=== PATIENT | female | born 1990 | race Caucasian/White ===

== ENCOUNTER 2018-06-05 13:04 | Emergency (ER) | payer OTHER ==
--- NOTE | 2018-06-05 13:47 | ERPHSYRPT ---
- History of Present Illness Time Seen by Provider: 06/05/18 13:43 Historian: patient, family Exam Limitations: no limitations Patient Subjective Stated Complaint: pt here for lower abd cramping since last night. no n/v, states she had conflicting test yesterday. no fever Triage Nursing Assessment: pt alert, walked in, resp easy, skin w/d/p. abd soft Physician History: The patient is a 27-year-old with one week delay of her menstrual period complaining now of pelvic cramping. She has no vaginal discharge. She took 2 home test yesterday. The first test was negative. The second test was positive. Then several hours later she started to have pelvic cramping. Her last menstrual period was April 23. Her past medical history is unremarkable. Timing/Duration: today Activities at Onset: none Quality: cramping Abdominal Pain Onset Location: other (lower abd) Pain Radiation: no radiation Severity of Pain-Max: moderate Severity of Pain-Current: moderate Allergies/Adverse Reactions: amoxicillin [Amoxicillin] Allergy (Verified 06/05/18 13:22) Home Medications: No Reportable Medications [No Reported Medications] 06/05/18 [History] Hx Tetanus, Diphtheria Vaccination/Date Given: Yes (UP TO DATE) Hx Influenza Vaccination/Date Given: No Hx Pneumococcal Vaccination/Date Given: No Immunizations Up to Date: Yes - Review of Systems Constitutional: No Fever, No Chills Eyes: No Symptoms Ears, Nose, & Throat: No Symptoms Respiratory: No Cough, No Dyspnea Cardiac: No Chest Pain, No Edema, No Syncope Abdominal/Gastrointestinal: Abdominal Pain (cramping) Genitourinary Symptoms: No Dysuria, No Vaginal Bleeding, No Vaginal Discharge Musculoskeletal: No Back Pain, No Neck Pain Skin: No Rash Neurological: No Dizziness, No Focal Weakness, No Sensory Changes Psychological: No Symptoms Endocrine: No Symptoms Hematologic/Lymphatic: No Symptoms Immunological/Allergic: No Symptoms All Other Systems: Reviewed and Negative - Past Medical History Pertinent Past Medical History: Yes Neurological History: No Pertinent History ENT History: No Pertinent History Cardiac History: Other Respiratory History: No Pertinent History Endocrine Medical History: No Pertinent History Musculoskeletal History: No Pertinent History GI Medical History: No Pertinent History Psycho-Social History: Anxiety, Depression Female Reproductive Disorders: No Pertinent History Other Medical History: FAST HEART RAT E - Past Surgical History Past Surgical History: Yes Gastrointestinal: Appendectomy Musculoskeletal: Prosthesis Other Surgical History: TONSILS - Social History Smoking Status: Current every day smoker Exposure to second hand smoke: Yes Drug Use: none Patient Lives Alone: No Significant Family History: no pertinent family hx - Female History Hx Last Menstrual Period: april 23 Hx Now: Yes - Nursing Vital Signs Nursing Vital Signs: Initial Vital Signs Temperature 97.8 F 06/05/18 13:14 Pulse Rate 109 H 06/05/18 13:14 Respiratory Rate 18 06/05/18 13:14 Blood Pressure 138/86 06/05/18 13:14 O2 Sat by Pulse Oximetry 97 06/05/18 13:14 Pain Scale Pain Intensity 4 - Physical Exam General Appearance: no apparent distress, alert Eye Exam: PERRL/EOMI, eyes nml inspection Ears, Nose, Throat Exam: normal ENT inspection, pharynx normal, moist mucous membranes Neck Exam: normal inspection, non-tender, supple, full range of motion Respiratory Exam: normal breath sounds, lungs clear, No respiratory distress Cardiovascular Exam: regular rate/rhythm, normal heart sounds Gastrointestinal/Abdomen Exam: soft, No tenderness, No mass Pelvic Exam: not done Rectal Exam: not done Back Exam: normal inspection, normal range of motion, No CVA tenderness, No vertebral tenderness Extremity Exam: normal inspection, normal range of motion, pelvis stable Neurologic Exam: alert, oriented x 3, cooperative, normal mood/affect, nml cerebellar function, sensation nml, No motor deficits Skin Exam: normal color, warm, dry SpO2 Interpretation: normal SpO2: 97 Oxygen Delivery: Room Air Ordered Tests: Active Orders 24 hr Category Date Time Status CULTURE,URINE Stat Lab 06/05/18 13:51 Received HCG QUALITATIVE,SERUM Stat Lab 06/05/18 13:57 Completed HCG, Quantitative (Inhouse) Stat Lab 06/05/18 13:57 Completed UA W/ MICROSCOPIC Stat Lab 06/05/18 13:51 Completed Medication Summary Discontinued Medications Generic Name Dose Route Start Last Admin Trade Name Freq PRN Reason Stop Dose Admin Acetaminophen 1,000 mg 06/05/18 13:48 06/05/18 13:53 Tylenol Extra Strength 500 Mg PO 06/05/18 13:49 1,000 mg STAT STA Administration Acetaminophen Confirm 06/05/18 13:52 Tylenol Extra Strength 500 Mg Administered 06/05/18 13:53 Dose 1,000 mg .ROUTE .STK-MED ONE Lab/Rad Data: Laboratory Results 06/05/18 06/05/18 06/05/18 Range/Units 13:57 13:57 13:51 Beta HCG, Quant < 2.39 mIU/ml Serum , Qual NEGATIVE (Negative) Ur Collection Type CLEAN CATCH Urine Color YELLOW (YELLOW) Urine Appearance HAZY (CLEAR) Urine pH 5.0 (5-6) Ur Specific [place] 1.025 (1.005-1.025) Urine Protein 100 (Negative) Urine Ketones NEGATIVE (NEGATIVE) Urine Blood 250 (0-5) Ramesh/ul Urine Nitrite NEGATIVE (NEGATIVE) Urine Bilirubin SMALL (NEGATIVE) Urine Urobilinogen NORMAL (0-1) mg/dL Ur Leukocyte Esterase TRACE (NEGATIVE) Urine Microscopic RBC 2-5 (0-2) /HPF Urine Microscopic WBC 2-5 (0-5) /HPF Ur Epithelial Cells MODERATE (FEW) /HPF Calcium Oxalate Crystal 10-25 (NEGATIVE) /HPF Urine Bacteria MODERATE (NEGATIVE) /HPF Urine Mucus MODERATE (NEGATIVE) /HPF Urine Culture Reflexed YES (NO) Urine Glucose NEGATIVE (NEGATIVE) mg/dL - Progress Progress: improved Counseled pt/family regarding: rad results - Departure Time of Disposition: 15:00 Departure Disposition: Home Clinical Impression: Menorrhagia with regular cycle Condition: Stable Critical Care Time: No Referrals: RAMY FLORES [Primary Care Provider] - Additional Instructions: You have menorrhagia. You were given Tylenol 1000 mg in the ER. The test was negative and the quantitative hormone test was negative. Take Tylenol and ibuprofen as needed for pain. Follow-up as needed.
[2018-06-05] MEDS ORDERED: TYLENOL EXTRA STRENGTH 500 MG PO STA (13:48)
[2018-06-05] MEDS ORDERED: TYLENOL EXTRA STRENGTH 500 MG ONE (13:52)
[2018-06-05 14:25] LABS: Appearance HAZY (CLEAR); Bacteria MODERATE /HPF (NEGATIVE); Bilirubin SMALL (NEGATIVE); Blood 250 Ery/ul (0-5); Epithelial Cells MODERATE /HPF (FEW); Glucose NEGATIVE (NEGATIVE); Ketones NEGATIVE (NEGATIVE); Leukocyte Esterase TRACE (NEGATIVE); Mucus MODERATE /HPF (NEGATIVE); Nitrite NEGATIVE (NEGATIVE); Protein,Urine Dip 100 (Negative); Specific Gravity 1.025 (1.005-1.025); Urobilinogen NORMAL mg/dL (0-1)
[2018-06-05 15:05] VITALS: BP 106/79; PULSE 82; O2SAT 98
== END 2018-06-05 15:07 | disposition home or self-care (01) ==
LOC: ED 13:04
DX: N92.0 Excessive and frequent menstruation with regular cycle (principal); R10.30 Lower abdominal pain, unspecified
CPT/HCPCS: 36415; 81000; 84702; 84703; 87086; 99283; A9270-GY

== ENCOUNTER 2018-09-22 21:57 | Emergency (ER) | payer OTHER ==
[2018-09-22] MEDS ORDERED: Sodium Chloride 0.9% 1000 ML 1,000 ML ONE (22:03)
[2018-09-22] MEDS ORDERED: NARCAN 2 MG/2 ML ONE ×2 (22:04→22:06)
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
[2018-09-22 22:38] VITALS: BP 117/81; PULSE 70; O2SAT 100
[2018-09-22 22:44] LABS: BASOPHIL % 0.3 % (0.0-0.4); Basophil (Absolute #) 0.03 (0-0.4); Eosinophil % 0.5 % (0.00-5.0); Eosinophil (Absolute #) 0.05 (0-0.5); Granulocytes % 58.9 % (36.0-66.0); Hematocrit 33.1 % (35-47); Hemoglobin 10.9 gm/dl (12.0-16.0); Lymphocytes % 30.4 % (24.0-44.0); Mean Cell Volume 92.5 fl (78-100); Mean Corpuscular Hemoglobin 30.4 pg (26-32); Mean Corpuscular Hgb Concent. 32.9 g/dl (32-36); Mean Platelet Volume 9.3 fl (6-9.5); Monocyte (Absolute #) 1.01 (0.0-1.3); Monocytes % 9.9 % (0.0-12.0); Platelet Count 338 K/mm3 (150-450); Red Blood Count 3.58 M/mm3 (4.1-5.4); Red Cell Distribution Width 12.7 % (11.5-14.0); White Blood Count 10.2 K/mm3 (4.0-10.5)
[2018-09-22 22:46] LABS: A-aADO2 126; ABG HEMOGLOBIN 11.3; ABG POTASSIUM 3.2 (3.5-5.1); ABG SITE RIGHT RADIAL; ALLEN TEST OK? YES; ARTERIAL BLD GAS O2 SATURATION 100.1 % (95-100); ARTERIAL BLOOD GAS BASE EXCESS -2.3 (-2.0-2.0); ARTERIAL BLOOD GAS FIO2 44 %; ARTERIAL BLOOD GAS PCO2 28 mmHg (35-45); ARTERIAL BLOOD GAS PO2 153 mmHg (75-100); ARTERIAL BLOOD GAS pH 7.47 (7.35-7.45); CARBOXYHEMOGLOBIN 4.2 % THgb (0.0-6.9); HCO3- 20.4 (22-28); HGB O2 SAT 94.9 g/dF (94-100); paO2 pAO1 0.55
[2018-09-22 23:02] LABS: ALBUMIN 4.1 g/dL (3.5-5.0); ALKALINE PHOSPHATASE 64 U/L (38-126); AMYLASE 33 U/L (30-110); BLOOD UREA NITROGEN 11 mg/dL (7-17); CHLORIDE 109 mmol/L (98-107); Calcium 8.7 mg/dL (8.4-10.2); Carbon Dioxide 23 mmol/L (22-30); Glucose 95 mg/dL (74-106); LIPASE 26 U/L (23-300); Potassium 3.3 mmol/L (3.5-5.1); SGOT/AST 18 U/L (14-36); SGPT/ALT 13 U/L (0-35); SODIUM 140 mmol/L (137-145); Total Protein 6.9 g/dL (6.3-8.2)
[2018-09-22] MEDS ORDERED: THIAMINE 200 MG/2 ML ONE (23:02)
[2018-09-22 23:04] LABS: ETHYL ALCOHOL < 10 mg/dL (0-10)
[2018-09-22] MEDS: Narcan 0.4 MG/ML IV ONE (23:05)
[2018-09-22] MEDS: Sodium Chloride 0.9% 1000 ML 1,000 ML IV STA (23:05)
[2018-09-22] MEDS: THIAMINE 200 MG/2 ML IV ONE (23:05)
[2018-09-22 23:13] LABS: Appearance CLOUDY (CLEAR); Bacteria RARE /HPF (NEGATIVE); Bilirubin NEGATIVE (NEGATIVE); Blood NEGATIVE Ery/ul (0-5); Epithelial Cells MANY /HPF (FEW); Glucose NEGATIVE (NEGATIVE); Ketones NEGATIVE (NEGATIVE); Leukocyte Esterase TRACE (NEGATIVE); Mucus SLIGHT /HPF (NEGATIVE); Nitrite NEGATIVE (NEGATIVE); Protein,Urine Dip NEGATIVE (Negative); RBC 0-2 /HPF (0-2); Specific Gravity 1.024 (1.005-1.025); Urobilinogen NEGATIVE mg/dL (0-1)
[2018-09-22 23:22] LABS: Barbiturate,Urine NEGATIVE (NEGATIVE); Benzodiazepine,Urine POSITIVE (NEGATIVE); Cocaine,Urine NEGATIVE (NEGATIVE); Methadone,Urine NEGATIVE (NEGATIVE); Opiate,Urine NEGATIVE (NEGATIVE); PCP,Urine NEGATIVE (NEGATIVE); THC,Urine POSITIVE (NEGATIVE)
[2018-09-22 23:48] LABS: Amphetamine,Urine POSITIVE (NEGATIVE)
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
== END 2018-09-22 22:52 | disposition short-term general hospital (02) ==
LOC: ED 21:57
DX: R40.4 Transient alteration of awareness (principal); S80.01XA Contusion of right knee, initial encounter; V49.88XA Car occupant (driver) (passenger) injured in other specified transport accidents, initial encounter
CPT/HCPCS: 36000; 36415; 36600; 51702; 70450; 71250; 72125; 80053; 80307; 81001; 81025; 82150; 82375; 82803; 82962; 83690; 85025; 93005; 93041; 96360; 96374; 96375; 99285; J2310; G0480

== ENCOUNTER 2019-05-19 01:10 | Emergency (ER) | payer OTHER ==
[2019-05-19 01:19] VITALS: BP 116/81; PULSE 110; O2SAT 100
[2019-05-19] MEDS ORDERED: Cipro 500 MG PO STA (01:36)
[2019-05-19] MEDS ORDERED: Floxin Otic 5 ML OT ONE (01:37)
[2019-05-19] MEDS ORDERED: Cipro 500 MG ONE (01:42)
--- NOTE | 2019-05-19 01:44 | ERPHSYRPT ---
- History of Present Illness Source: patient Exam Limitations: no limitations Patient Subjective Stated Complaint: "I've had an earache for 2 weeks and I've been taking IBU and antibiotic (cephalexin) and it's only gotten worse. I have drainage and I can't hear out of my left ear now". Triage Nursing Assessment: pt alert and oriented x3, pleasant. Pt c/o lt ear pain, having severe pain tonight. Ear looks red. No drainage noted. Lungs clear, heart tones reg, abd lg and with active bs x4 quad, nontender. heart tones 158. Physician History: Pt is a 28 y/o female that is 23 week . She presented to the ED with severe earache on the L. Pt states, her PCP gave her keflex, but the ear pain is getting worse, and she has some drainage from the aer. Pt states, has fever , and pain in her neck and behind the ear. Timing/Duration: gradual onset Severity: severe ENT Location: ear (L) Prearrival Treatment: prescription meds Modifying Factors: Improves With: nothing Associated Symptoms: ear pain (L), fever, ear drainage, neck pain Allergies/Adverse Reactions: amoxicillin [Amoxicillin] Allergy (Verified 06/05/18 13:22) Home Medications: Cephalexin [Keflex] 500 mg PO TID 05/19/19 [History] Pnv No.95/Ferrous Fum/Folic AC [ Vitamins Tablet] 1 tab PO DAILY [History] Hx Tetanus, Diphtheria Vaccination/Date Given: Yes Hx Influenza Vaccination/Date Given: No Hx Pneumococcal Vaccination/Date Given: No Immunizations Up to Date: Yes - Review of Systems Constitutional: Fever Eyes: No Symptoms Ears, Nose, & Throat: Ear Pain (On the L), Other (pain in the neck and back of the ear.) Respiratory: No Cough, No Dyspnea Cardiac: No Chest Pain, No Edema, No Syncope Abdominal/Gastrointestinal: No Abdominal Pain, No Nausea, No Vomiting, No Diarrhea Musculoskeletal: No Back Pain, No Neck Pain Neurological: No Dizziness, No Focal Weakness, No Sensory Changes - Past Medical History Pertinent Past Medical History: Yes Neurological History: No Pertinent History ENT History: No Pertinent History Cardiac History: Other Respiratory History: No Pertinent History Endocrine Medical History: No Pertinent History Musculoskeletal History: No Pertinent History GI Medical History: No Pertinent History History: No Pertinent History Psycho-Social History: Anxiety, Depression Female Reproductive Disorders: No Pertinent History Other Medical History: FAST HEART RAT E - Past Surgical History Past Surgical History: Yes Neuro Surgical History: No Pertinent History Cardiac: No Pertinent History Respiratory: No Pertinent History Gastrointestinal: Appendectomy Genitourinary: No Pertinent History Musculoskeletal: No Pertinent History Female Surgical History: No Pertinent History Other Surgical History: TONSILS - Social History Smoking Status: Current some day smoker How long have you smoked: 10 yrs Exposure to second hand smoke: No Drug Use: none Patient Lives Alone: No Significant Family History: no pertinent family hx - Female History Hx Now: Yes Expected Date of Delivery: 09/13/19 Gestational Age: 23 wks 1 d - Nursing Vital Signs Nursing Vital Signs: Initial Vital Signs Temperature 97.6 F 05/19/19 01:17 Pulse Rate 110 H 05/19/19 01:17 Respiratory Rate 17 05/19/19 01:17 Blood Pressure 116/81 05/19/19 01:17 O2 Sat by Pulse Oximetry 100 05/19/19 01:17 Pain Scale Pain Intensity 9 - Physical Exam General Appearance: moderate distress Eye Exam: bilateral eye: normal inspection, PERRL, EOMI Ear Exam: right ear: auricle normal, canal normal, TM normal, left ear: erythema , swelling, tenderness, TM dull, other (discharge seen) Nasal Exam: normal inspection Throat Exam: pharynx normal, moist mucus membranes, No tonsillar exudate Neck Exam: tender lateral Cardiovascular/Respiratory Exam: normal breath sounds, regular rate/rhythm Abdominal Exam: non-tender, soft Neurologic Exam: alert, oriented x 3, sensation nml, No motor deficits SpO2 Interpretation: normal SpO2: 100 O2 Delivery: Room Air - Course Nursing assessment & vital signs reviewed: Yes Ordered Tests: Medication Summary Discontinued Medications Generic Name Dose Route Start Last Admin Trade Name Freq PRN Reason Stop Dose Admin Ciprofloxacin 500 mg 05/19/19 01:36 Cipro 500 Mg PO 05/19/19 01:37 ONCE STA Ofloxacin 5 ml 05/19/19 01:37 Floxin Otic 5 Ml OT 05/19/19 01:38 STAT ONE - Progress Progress Note: 05/19/19 01:45 Pt is a 28 y/o female that presented with earache on the L. Pt has otitis externa with swollen, erythematous and discharge in ear canal. The pt has tenderness around the ear, in the neck and back of the ear. I will start pt on Cipro 500mg BID, and Ofloxacin ear drops. She can have Tylenol OTC for pain. Pt was instructed to avoid swimming pool, and keep the ear clean and dry. Will see patient in: office Counseled pt/family regarding: need for follow-up - Departure Departure Disposition: Home Clinical Impression: Otitis externa in other diseases classified elsewhere, left ear Condition: Stable Critical Care Time: No Referrals: RAMY FLORES [Primary Care Provider] - Additional Instructions: Finish Cipro ABX and use ear drops, till infection is gone. F/U with your PCP. Prescriptions: Ciprofloxacin [Cipro 500 MG] 500 mg PO BIDAC #14 tablet
== END 2019-05-19 02:07 | disposition home or self-care (01) ==
LOC: ED 01:10
DX: H60.92 Unspecified otitis externa, left ear (principal)
CPT/HCPCS: 99283; A9270-GY

== ENCOUNTER 2019-05-19 02:11 | Observation (INO) | payer OTHER ==
[2019-05-19 02:59] LABS: Appearance SLIGHTLY CLOUDY (CLEAR); Bilirubin NEGATIVE (NEGATIVE); Blood NEGATIVE Ery/ul (0-5); Glucose NEGATIVE (NEGATIVE); Ketones NEGATIVE (NEGATIVE); Leukocyte Esterase NEGATIVE (NEGATIVE); Nitrite NEGATIVE (NEGATIVE); Protein,Urine Dip NEGATIVE (Negative); Specific Gravity 1.023 (1.005-1.025); Urobilinogen NORMAL mg/dL (0-1)
[2019-05-19 03:00] LABS: Bacteria RARE /HPF (NEGATIVE); Epithelial Cells RARE /HPF (FEW); Hyaline Casts 0-2 /LPF (0-2); Mucus SLIGHT /HPF (NEGATIVE)
[2019-05-19] MEDS ORDERED: Pepcid 20 MG PO ONE (03:16)
[2019-05-19 05:06] VITALS: O2SAT 100
[2019-05-19 09:05] LABS: BASOPHIL % 0.1 % (0.0-0.4); Basophil (Absolute #) 0.01 (0-0.4); Eosinophil % 1.8 % (0.00-5.0); Eosinophil (Absolute #) 0.13 (0-0.5); Granulocyte Absolute (ANC) 4.05 (1.4-6.9); Granulocytes % 57.1 % (36.0-66.0); Hematocrit 31.7 % (35-47); Hemoglobin 10.3 gm/dl (12.0-16.0); Lymphocyte (Absolute #) 2.39 (1.0-4.6); Lymphocytes % 33.7 % (24.0-44.0); Mean Cell Volume 94.6 fl (78-100); Mean Corpuscular Hemoglobin 30.7 pg (26-32); Mean Corpuscular Hgb Concent. 32.5 g/dl (32-36); Mean Platelet Volume 9.4 fl (6-9.5); Monocyte (Absolute #) 0.52 (0.0-1.3); Monocytes % 7.3 % (0.0-12.0); Platelet Count 324 K/mm3 (150-450); Red Blood Count 3.35 M/mm3 (4.1-5.4); Red Cell Distribution Width 14.1 % (11.5-14.0); White Blood Count 7.1 K/mm3 (4.0-10.5)
[2019-05-19 09:17] LABS: ALBUMIN 3.2 g/dL (3.5-5.0); ALKALINE PHOSPHATASE 71 U/L (38-126); AMYLASE 65 U/L (30-110); ANION GAP 9.8 MEQ/L (5-15); BLOOD UREA NITROGEN 7 mg/dL (7-17); CHLORIDE 107 mmol/L (98-107); Calcium 8.7 mg/dL (8.4-10.2); Carbon Dioxide 24 mmol/L (22-30); Glucose 76 mg/dL (74-106); LIPASE 38 U/L (23-300); Potassium 4.1 mmol/L (3.5-5.1); SGOT/AST 17 U/L (14-36); SGPT/ALT 13 U/L (0-35); SODIUM 136 mmol/L (137-145); Total Protein 6.4 g/dL (6.3-8.2)
[2019-05-19 09:49] VITALS: BP 107/68
[2019-05-19] MEDS ORDERED: Floxin Otic 5 ML OT SCH (10:00)
[2019-05-19] MEDS ORDERED: Cipro 500 MG PO SCH (10:00)
[2019-05-19 12:17] LABS: Barbiturate,Urine NEGATIVE (NEGATIVE); Benzodiazepine,Urine NEGATIVE (NEGATIVE); Cocaine,Urine NEGATIVE (NEGATIVE); Methadone,Urine NEGATIVE (NEGATIVE); Opiate,Urine NEGATIVE (NEGATIVE); PCP,Urine NEGATIVE (NEGATIVE); THC,Urine POSITIVE (NEGATIVE)
[2019-05-19 12:50] VITALS: PULSE 76
[2019-05-19 13:19] LABS: Amphetamine,Urine POSITIVE (NEGATIVE)
== END 2019-05-19 12:58 | disposition home or self-care (01) ==
LOC: OB 02:11
PROVIDERS: ADMIT Family Medicine; ATTEND Family Medicine
DX: O26.892 Other specified pregnancy related conditions, second trimester (principal); Z3A.23 23 weeks gestation of pregnancy; R10.13 Epigastric pain
CPT/HCPCS: 36415; 80053; 80307; 81001; 82150; 83690; 85025; G0378; 99283; A9270-GY

== ENCOUNTER 2019-06-08 22:02 | Observation (INO) | payer OTHER ==
[2019-06-08 22:24] LABS: Appearance CLEAR (CLEAR); Bilirubin NEGATIVE (NEGATIVE); Blood NEGATIVE Ery/ul (0-5); Epithelial Cells RARE /HPF (FEW); Glucose NEGATIVE (NEGATIVE); Ketones SMALL (NEGATIVE); Leukocyte Esterase NEGATIVE (NEGATIVE); Mucus SLIGHT /HPF (NEGATIVE); Nitrite NEGATIVE (NEGATIVE); Protein,Urine Dip NEGATIVE (Negative); Specific Gravity 1.012 (1.005-1.025); Urobilinogen NEGATIVE mg/dL (0-1)
[2019-06-08 22:33] LABS: Amphetamine,Urine NEGATIVE (NEGATIVE); Barbiturate,Urine NEGATIVE (NEGATIVE); Benzodiazepine,Urine NEGATIVE (NEGATIVE); Cocaine,Urine NEGATIVE (NEGATIVE); Methadone,Urine NEGATIVE (NEGATIVE); Opiate,Urine NEGATIVE (NEGATIVE); PCP,Urine NEGATIVE (NEGATIVE); THC,Urine POSITIVE (NEGATIVE)
[2019-06-08] MEDS ORDERED: Lactated Ringers 1,000 ML IV ONE (23:26)
[2019-06-08] MEDS ORDERED: Pepcid 20 MG VIAL IV PRN (23:37)
[2019-06-08] MEDS ORDERED: TYLENOL 325 MG PO PRN (23:38)
[2019-06-09] MEDS: Zofran 4 MG/2 ML VIAL IV PRN ×4 (00:18→21:15)
[2019-06-09 00:33] LABS: BASOPHIL % 0.1 % (0.0-0.4); Basophil (Absolute #) 0.01 (0-0.4); Eosinophil % 0.2 % (0.00-5.0); Eosinophil (Absolute #) 0.03 (0-0.5); Granulocyte Absolute (ANC) 13.76 (1.4-6.9); Granulocytes % 84.7 % (36.0-66.0); Hematocrit 38.5 % (35-47); Hemoglobin 12.7 gm/dl (12.0-16.0); Lymphocyte (Absolute #) 1.73 (1.0-4.6); Lymphocytes % 10.7 % (24.0-44.0); Mean Cell Volume 92.5 fl (78-100); Mean Corpuscular Hemoglobin 30.5 pg (26-32); Mean Platelet Volume 9.6 fl (6-9.5); Monocytes % 4.3 % (0.0-12.0); Platelet Count 341 K/mm3 (150-450); Red Blood Count 4.16 M/mm3 (4.1-5.4); Red Cell Distribution Width 14.3 % (11.5-14.0); White Blood Count 16.2 K/mm3 (4.0-10.5)
[2019-06-09 00:52] LABS: ALBUMIN 4.2 g/dL (3.5-5.0); ALKALINE PHOSPHATASE 87 U/L (38-126); ANION GAP 17.4 MEQ/L (5-15); BLOOD UREA NITROGEN 5 mg/dL (7-17); CHLORIDE 100 mmol/L (98-107); Calcium 9.8 mg/dL (8.4-10.2); Carbon Dioxide 24 mmol/L (22-30); Creatinine 1 0.35 mg/dL (0.52-1.04); Glucose 91 mg/dL (74-106); Potassium 4.6 mmol/L (3.5-5.1); SGOT/AST 21 U/L (14-36); SGPT/ALT 18 U/L (0-35); SODIUM 137 mmol/L (137-145); Total Protein 7.8 g/dL (6.3-8.2)
[2019-06-09] MEDS: Lactated Ringers 1,000 ML IV SCH ×3 (01:00→19:37)
[2019-06-09 01:25] LABS: ABO TYPING O; Antibody Screen NEGATIVE (NEGATIVE); RH TYPING NEGATIVE
[2019-06-09] MEDS ORDERED: Dulcolax 10 MG SUPP PR ONE (06:18)
[2019-06-09] MEDS: MORPHINE SULFATE 10 MG/ML IV PRN ×5 (06:23→22:21)
[2019-06-09] MEDS: Merrem 1 GM 1 G in Sodium Chloride 100ML MINI-BAG PLUS 100 ML IV SCH ×2 (09:57→18:18)
--- NOTE | 2019-06-09 10:33 | XRAY ---
Indication: Abdomen pain. Nausea and vomiting. Two-dimensional right upper quadrant abdominal sonogram performed. Comparison: November 30, 2012. Gallbladder normally distended again without gallstones, wall thickening, or pericholecystic fluid. Common bile duct measures 4.1 mm. No intrahepatic biliary distention or ascites. Remaining visualized portions of the liver, pancreas, and right kidney appear sonographically unremarkable. Right kidney measures 10.5 cm in length. Impression: Again negative right upper quadrant sonogram.
--- NOTE | 2019-06-09 10:37 | XRAY ---
Indication: Pain. 2-dimensional OB ultrasound performed. Comparison: None for this . There is a single viable intrauterine currently in cephalic presentation. Normal four-chamber heart with heart rate 137 BPM. Normal three-vessel cord and cord insertion. Visualized head, spine, stomach, and kidneys unremarkable. Posterior placenta without abruption/previa. Cervix is closed measuring 3.7 cm in length. BPD measures 6.62 cm corresponding to 26 weeks 5 days. HC measures 24.54 cm corresponding to 26 weeks 5 days. AC measures 22.68 cm corresponding to 27 weeks 0 days. FL measures 4.92 cm corresponding to 26 weeks 4 days. RYAN is 10.7 cm. Impression: Single viable intrauterine with mean gestational age 26 weeks 5 days. Expected date of confinement is September 10, 2019.
[2019-06-09] MEDS: Phenergan 25 MG INJ IV PRN (18:18)
[2019-06-10] MEDS: Phenergan 25 MG INJ IV PRN ×2 (01:58→17:54)
[2019-06-10] MEDS: Merrem 1 GM 1 G in Sodium Chloride 100ML MINI-BAG PLUS 100 ML IV SCH ×3 (01:58→17:46)
[2019-06-10] MEDS: MORPHINE SULFATE 10 MG/ML IV PRN (05:36)
[2019-06-10] MEDS: Lactated Ringers 1,000 ML IV SCH ×2 (05:58→16:53)
[2019-06-10 06:03] LABS: Hematocrit 30.9 % (35-47); Hemoglobin 9.9 gm/dl (12.0-16.0); Mean Cell Volume 94.5 fl (78-100); Mean Platelet Volume 9.5 fl (6-9.5); Platelet Count 283 K/mm3 (150-450); Red Blood Count 3.27 M/mm3 (4.1-5.4); Red Cell Distribution Width 14.4 % (11.5-14.0); White Blood Count 8.5 K/mm3 (4.0-10.5)
[2019-06-10 06:16] LABS: ALBUMIN 3.1 g/dL (3.5-5.0); ALKALINE PHOSPHATASE 64 U/L (38-126); ANION GAP 10.5 MEQ/L (5-15); BLOOD UREA NITROGEN 4 mg/dL (7-17); CHLORIDE 104 mmol/L (98-107); Calcium 8.7 mg/dL (8.4-10.2); Carbon Dioxide 25 mmol/L (22-30); Glucose 77 mg/dL (74-106); Potassium 3.7 mmol/L (3.5-5.1); SGOT/AST 14 U/L (14-36); SGPT/ALT 12 U/L (0-35); SODIUM 136 mmol/L (137-145); Total Protein 6.1 g/dL (6.3-8.2)
[2019-06-10 06:28] LABS: Mean Corpuscular Hemoglobin 30.2 pg (26-32)
[2019-06-10 06:34] LABS: Lymphocytes 22 % (24-44); Monocyte 4 % (0.0-12.0); Neutrophils 74 % (36.0-66.0); Total Cells Counted 100
[2019-06-10 06:35] LABS: Platelet Estimate NORMAL (NORMAL)
[2019-06-10] MEDS: Zofran 4 MG/2 ML VIAL IV PRN (21:06)
[2019-06-11] MEDS: Phenergan 25 MG INJ IV PRN (00:30)
[2019-06-11] MEDS: Merrem 1 GM 1 G in Sodium Chloride 100ML MINI-BAG PLUS 100 ML IV SCH ×2 (02:01→11:34)
[2019-06-11] MEDS: Lactated Ringers 1,000 ML IV SCH (04:00)
[2019-06-11 10:12] VITALS: BP 111/63; PULSE 75
[2019-06-12 10:59] LABS: Immune Status: Immune
--- NOTE | 2019-06-12 11:14 | CONS ---
CONSULT DATE: 06/10/2019 HISTORY: The patient is a 28 year-old, 26 week female had some upper abdominal pain, had some vomiting. She had gallbladder ultrasound that was negative. The pain has since improved. She is tolerating some p.o. She had some mashed potatoes. She reports she is feeling better. She had leukocytosis when she was admitted at 18 and was down to 8 in normal range. Liver function tests were normal. Again, right upper quadrant ultrasound was negative. PAST MEDICAL HISTORY: She denied any chronic illnesses. PAST SURGICAL HISTORY: Tonsillectomy and appendectomy in the past. HOME MEDICATIONS: She has been on Cipro and vitamins in the past. ALLERGIES: NKDA. FAMILY HISTORY: Negative in regards to this problem. No gallbladder disease in the family. She had some cancer in the family otherwise noncontributory. PHYSICAL EXAMINATION: GENERAL: No acute distress. HEENT: Sclera nonicteric. NECK: No JVD. CHEST: Equal excursion, nonlabored breathing. CVS: Regular rate and rhythm. ABDOMEN: Soft. Gravid. She is currently nontender. No rebound. No guarding. No peritoneal signs. EXTREMITIES: No edema. NEURO: Alert, moving extremities grossly symmetrically. IMPRESSION: A 28 year-old gravid female had some upper abdominal pain. Whether related to gastritis or acalculous chronic cholecystitis or dyskinesia or other etiology is unclear. Either way gallbladder ultrasound was negative. She is feeling better. There is absolutely no reason for any acute surgical intervention at this time. Likely she could be released. If she has persistent symptoms after delivery, to consider HIDA scan and/or upper endoscopy but at this time she is feeling better and ultrasound is negative, no emergent surgery necessary. Continue medical management.
[2019-06-12 14:06] LABS: RPR Screen Non Reactive (Non Reactive)
== END 2019-06-11 13:11 ==
LOC: OB 22:02
PROVIDERS: ADMIT Family Medicine; ATTEND Family Medicine
DX: O26.892 Other specified pregnancy related conditions, second trimester (principal); Z3A.26 26 weeks gestation of pregnancy; R10.11 Right upper quadrant pain; R10.13 Epigastric pain; D72.829 Elevated white blood cell count, unspecified
CPT/HCPCS: 0064U; 36415; 76705; 76805; 80053; 80307; 81001; 85025; 86592; 86593; 86701; 86702; 86762; 86850; 86900; 86901; 87340; 87389; G0378; J2270; J2405; J2550; A9270-GY

== ENCOUNTER 2019-06-13 23:12 | Observation (INO) | payer OTHER ==
[2019-06-14 00:10] LABS: Amourphous Crystal FEW /HPF (NEGATIVE); Appearance CLOUDY (CLEAR); Bilirubin NEGATIVE (NEGATIVE); Blood NEGATIVE Ery/ul (0-5); Epithelial Cells RARE /HPF (FEW); Glucose NEGATIVE (NEGATIVE); Ketones NEGATIVE (NEGATIVE); Leukocyte Esterase NEGATIVE (NEGATIVE); Mucus SLIGHT /HPF (NEGATIVE); Nitrite NEGATIVE (NEGATIVE); Protein,Urine Dip NEGATIVE (Negative); Specific Gravity 1.017 (1.005-1.025); Urobilinogen NEGATIVE mg/dL (0-1)
[2019-06-14 00:11] LABS: RBC NONE SEEN /HPF (0-2)
[2019-06-14 00:14] LABS: Amphetamine,Urine NEGATIVE (NEGATIVE); Barbiturate,Urine NEGATIVE (NEGATIVE); Benzodiazepine,Urine NEGATIVE (NEGATIVE); Cocaine,Urine NEGATIVE (NEGATIVE); Methadone,Urine NEGATIVE (NEGATIVE); Opiate,Urine NEGATIVE (NEGATIVE); PCP,Urine NEGATIVE (NEGATIVE); THC,Urine POSITIVE (NEGATIVE)
[2019-06-14] MEDS ORDERED: Nubain 10 MG/ML IV ONE ×3 (00:45→08:12)
[2019-06-14] MEDS ORDERED: Zofran 4 MG/2 ML VIAL IV PRN ×2 (00:48→05:33)
[2019-06-14] MEDS: Lactated Ringers 1,000 ML IV SCH ×2 (00:52→08:33)
[2019-06-14] MEDS ORDERED: Zofran 4 MG/2 ML VIAL ONE (01:08)
[2019-06-14 01:22] LABS: Hematocrit 32.7 % (35-47); Hemoglobin 10.7 gm/dl (12.0-16.0); Mean Cell Volume 92.4 fl (78-100); Mean Corpuscular Hemoglobin 30.2 pg (26-32); Mean Corpuscular Hgb Concent. 32.7 g/dl (32-36); Mean Platelet Volume 9.3 fl (6-9.5); Platelet Count 314 K/mm3 (150-450); Red Blood Count 3.54 M/mm3 (4.1-5.4); Red Cell Distribution Width 14.6 % (11.5-14.0); White Blood Count 14.3 K/mm3 (4.0-10.5)
[2019-06-14 01:37] LABS: ALBUMIN 3.7 g/dL (3.5-5.0); ALKALINE PHOSPHATASE 73 U/L (38-126); AMYLASE 104 U/L (30-110); ANION GAP 13.6 MEQ/L (5-15); BLOOD UREA NITROGEN 6 mg/dL (7-17); CHLORIDE 104 mmol/L (98-107); Calcium 9.2 mg/dL (8.4-10.2); Carbon Dioxide 23 mmol/L (22-30); Creatinine 1 0.29 mg/dL (0.52-1.04); Glucose 78 mg/dL (74-106); LIPASE 80 U/L (23-300); SGOT/AST 18 U/L (14-36); SGPT/ALT 17 U/L (0-35); SODIUM 137 mmol/L (137-145); Total Protein 7.1 g/dL (6.3-8.2)
[2019-06-14 04:07] LABS: BAND 4 % (0.0-2.0); Lymphocytes 17 % (24-44); Monocyte 4 % (0.0-12.0); Neutrophils 75 % (36.0-66.0); Platelet Estimate NORMAL (NORMAL); Total Cells Counted 100
[2019-06-14] MEDS ORDERED: TYLENOL EXTRA STRENGTH 500 MG PO STA (05:34)
[2019-06-14] MEDS ORDERED: TYLENOL EXTRA STRENGTH 500 MG PO PRN (05:51)
[2019-06-14] MEDS ORDERED: Colace 100 MG PO PRN (08:12)
[2019-06-14] MEDS ORDERED: Phenergan 25 MG INJ IV PRN (08:54)
[2019-06-14 11:48] VITALS: PULSE 76
[2019-06-14] MEDS ORDERED: ULTRAM 50 MG PO PRN (12:54)
--- NOTE | 2019-06-14 13:33 | XRAY ---
Exam: Gallbladder ultrasound from 06/14/2019. Comparison: Upper abdominal ultrasound from 06/09/2019 and gallbladder ultrasound from 12/02/2012. Indication: Right upper quadrant abdominal pain. Findings: Transverse sonogram images of the pancreas appear unremarkable. No mass or ductal distention is seen. The liver appears of unremarkable size and uniform echotexture. No liver mass or intrahepatic biliary duct distention is seen. There is normal blood flow within the portal vein toward the liver. The gallbladder is distended and reveals no intraluminal gallstones or significant biliary sludge. The gallbladder measures about 4.3 cm in maximum diameter on a longitudinal image and 4.6 cm in maximum diameter on a transverse left lateral decubitus image. This is mildly dilated. The gallbladder wall thickness is normal measuring 1.4 mm. No pericholecystic edema or fluid is seen. The proximal common bile duct measures 5.1 mm which is normal. The right kidney measures 11.5 cm in length and reveals no solid mass or hydronephrosis. There is a question of a small extrarenal pelvis on a transverse image. Impression: 1. The gallbladder is mildly dilated with the gallbladder width measuring between 4.3 cm and 4.6 cm in diameter. However, no intraluminal gallstones,, biliary sludge, or gallbladder wall thickening is seen. Correlate clinically as to whether further evaluation with a functional study such as a radionuclide hepatobiliary scan with gallbladder ejection fraction is clinically warranted. 2. No intrahepatic or extrahepatic biliary duct distention is seen. 3. The remainder of the right upper quadrant ultrasound appears essentially unremarkable.
[2019-06-14 15:58] VITALS: BP 113/51
--- NOTE | 2019-06-14 17:22 | PCM.SSS ---
History of Present Illness - Chief Complaint Chief Complaint: abd pain Date: 06/14/19 History of Present Illness: is a 28 year old G2 at 27 weeks. Patient was recently in the hospital for GB related pain. [facility] presented [facility] night from the detention for reported abdominal pain. She was admitted last weekend for the same abdominal pain. Patient reports that her pain did improve but as soon as she went back to detention the pain started up again. She has noticed a correlation with food. She reports pain after eating spaghetti. She reports that she has not been eating very much because of the pain. She denies any fevers, constipation, dysuria or hematuria. Patient denies any headaches, blurry vision, swelling in her hands and feet. She was seen in 2012 for GB pain and states this pain is similar to what she had back then. She was seen by Dr Silveira from Surgery over the weekend. He recommended patient get a HIDA scan and possible Sonia after she has delivered. - Review of Systems Constitutional: No Fever Eyes: No Double Vision Respiratory: No Cough, No Short Of Breath Cardiac: No Edema Abdominal/Gastrointestinal: Abdominal Pain, Nausea, Vomiting, Appetite Changes, No Diarrhea, No Constipation Genitourinary Symptoms: , No Dysuria, No Hematuria, No Vaginal Bleeding Skin: No Pruritis Psychological: Drug Abuse (Patient denies) Hematologic/Lymphatic: No Anemia Medications & Allergies Home Medications: Home Medication List Pnv No.95/Ferrous Fum/Folic AC [ Vitamins Tablet] 1 tab PO DAILY [History Confirmed 06/13/19] Allergies/Adverse Reactions: Allergies Allergy/AdvReac Type Severity Reaction Status Date / Time amoxicillin [Amoxicillin] Allergy Severe Hives Verified 06/08/19 22:20 - Past Medical History Past Medical History: Yes Neurological History: No Pertinent History ENT History: No Pertinent History Cardiac History: Other Respiratory History: No Pertinent History Endocrine Medical History: No Pertinent History Musculoskelatal History: No Pertinent History GI Medical History: No Pertinent History History: No Pertinent History Pyscho-Social History: Anxiety, Depression Reproductive Disorders: No Pertinent History Comment: FAST HEART RAT E - Female History Are you now?: Yes Expected Date of Delivery: 09/13/19 - Past Surgical History Past Surgical History: Yes Neuro Surgical History: No Pertinent History Cardiac History: No Pertinent History Respiratory Surgery: No Pertinent History GI Surgical History: Appendectomy Genitourinary Surgical Hx: No Pertinent History Musculskeletal Surgical Hx: No Pertinent History Female Surgical History: No Pertinent History Other Surgical History: TONSILS - Social History Smoking Status: Former smoker How long have you smoked: 10 yrs Exposure to second hand smoke: No Alcohol: None Drug Use: marijuana (Patient denies but all of her [facility] drug screens have been positive for THC. ) Significant Family History: no pertinent family hx - Physical Exam Vital Signs: Vital Signs - 24 hr Temp Pulse Resp BP 06/14/19 15:57 20 113/51 06/14/19 11:47 76 20 100/54 06/14/19 08:00 98.2 F 77 22 114/72 06/14/19 02:49 73 106/66 06/13/19 23:30 98.4 F 06/13/19 23:25 98.4 F 94 H 123/85 Oxygen-Last 24 hours O2 Percentage 5 Liters = 40% General Appearance: obese, other (Patient was asleep upon entering the room. She then began complaining of pain. She has been reporting 10/10 pain. She was in NAD.) Neurologic Exam: alert, oriented x 3 (Flat affect. Patient answered yes/no questions) Ears, Nose, Throat Exam: moist mucous membranes Neck Exam: normal inspection Respiratory Exam: normal breath sounds, lungs clear Cardiovascular Exam: regular rate/rhythm, normal heart sounds, capillary refill <2 sec, No murmur, No friction rub, No gallop, No edema Gastrointestinal/Abdomen Exam: soft, normal bowel sounds, tenderness (Patient was diffusely tender. Less on the Left side than R. Suprapubic tenderness), other (Positive Quintana's sign) Pelvic Exam: other (Gravid.), No uterine tenderness Extremity Exam: normal inspection, normal range of motion Skin Exam: normal color, warm, dry, No jaundice Results - Labs Lab/Micro Results: Lab Results-Last 24 Hours 06/13/19 06/13/19 06/14/19 Range/Units 23:45 23:45 01:17 WBC 14.3 H (4.0-10.5) K/mm3 RBC 3.54 L (4.1-5.4) M/mm3 Hgb 10.7 L (12.0-16.0) gm/dl Hct 32.7 L (35-47) % MCV 92.4 (78-100) fl MCH 30.2 (26-32) pg MCHC 32.7 (32-36) g/dl RDW 14.6 H (11.5-14.0) % Plt Count 314 (150-450) K/mm3 MPV 9.3 (6-9.5) fl Segmented Neutrophils 75 H (36.0-66.0) % Band Neutrophils 4 H (0.0-2.0) % Lymphocytes (Manual) 17 L (24-44) % Monocytes (Manual) 4 (0.0-12.0) % Platelet Estimate NORMAL (NORMAL) RBC Morphology NORMAL Sodium (137-145) mmol/L Potassium (3.5-5.1) mmol/L Chloride (98-107) mmol/L Carbon Dioxide (22-30) mmol/L Anion Gap (5-15) MEQ/L BUN (7-17) mg/dL Creatinine (0.52-1.04) mg/dL Estimated GFR ML/MIN Glucose (74-106) mg/dL Calcium (8.4-10.2) mg/dL Total Bilirubin (0.2-1.3) mg/dL AST (14-36) U/L ALT (0-35) U/L Alkaline Phosphatase (38-126) U/L Serum Total Protein (6.3-8.2) g/dL Albumin (3.5-5.0) g/dL Amylase (30-110) U/L Lipase (23-300) U/L Urine Color YELLOW (YELLOW) Urine Appearance CLOUDY (CLEAR) Urine pH 8.0 (5-6) Ur Specific Hubert 1.017 (1.005-1.025) Urine Protein NEGATIVE (Negative) Urine Ketones NEGATIVE (NEGATIVE) Urine Blood NEGATIVE (0-5) Ramesh/ul Urine Nitrite NEGATIVE (NEGATIVE) Urine Bilirubin NEGATIVE (NEGATIVE) Urine Urobilinogen NEGATIVE (0-1) mg/dL Ur Leukocyte Esterase NEGATIVE (NEGATIVE) Urine WBC (Auto) 6-10 (0-5) /HPF Urine RBC (Auto) NONE SEEN (0-2) /HPF U Epithel Cells (Auto) RARE (FEW) /HPF Urine Bacteria (Auto) NONE (NEGATIVE) /HPF Amorphous Crystals FEW (NEGATIVE) /HPF Urine Mucus (Auto) SLIGHT (NEGATIVE) /HPF Urine Culture Reflexed NO (NO) Urine Glucose NEGATIVE (NEGATIVE) mg/dL Urine Opiates Level NEGATIVE (NEGATIVE) Ur Methadone NEGATIVE (NEGATIVE) Urine Barbiturates NEGATIVE (NEGATIVE) Ur Phencyclidine (PCP) NEGATIVE (NEGATIVE) Urine Amphetamine NEGATIVE (NEGATIVE) U Benzodiazepine Level NEGATIVE (NEGATIVE) Urine Cocaine NEGATIVE (NEGATIVE) Urine Marijuana (THC) POSITIVE (NEGATIVE) 06/14/19 Range/Units 01:17 WBC (4.0-10.5) K/mm3 RBC (4.1-5.4) M/mm3 Hgb (12.0-16.0) gm/dl Hct (35-47) % MCV (78-100) fl MCH (26-32) pg MCHC (32-36) g/dl RDW (11.5-14.0) % Plt Count (150-450) K/mm3 MPV (6-9.5) fl Segmented Neutrophils (36.0-66.0) % Band Neutrophils (0.0-2.0) % Lymphocytes (Manual) (24-44) % Monocytes (Manual) (0.0-12.0) % Platelet Estimate (NORMAL) RBC Morphology Sodium 137 (137-145) mmol/L Potassium 4.0 (3.5-5.1) mmol/L Chloride 104 (98-107) mmol/L Carbon Dioxide 23 (22-30) mmol/L Anion Gap 13.6 (5-15) MEQ/L BUN 6 L (7-17) mg/dL Creatinine 0.29 L (0.52-1.04) mg/dL Estimated GFR > 60.0 ML/MIN Glucose 78 (74-106) mg/dL Calcium 9.2 (8.4-10.2) mg/dL Total Bilirubin 0.20 (0.2-1.3) mg/dL AST 18 (14-36) U/L ALT 17 (0-35) U/L Alkaline Phosphatase 73 (38-126) U/L Serum Total Protein 7.1 (6.3-8.2) g/dL Albumin 3.7 (3.5-5.0) g/dL Amylase 104 (30-110) U/L Lipase 80 (23-300) U/L Urine Color (YELLOW) Urine Appearance (CLEAR) Urine pH (5-6) Ur Specific Hubert (1.005-1.025) Urine Protein (Negative) Urine Ketones (NEGATIVE) Urine Blood (0-5) Ramesh/ul Urine Nitrite (NEGATIVE) Urine Bilirubin (NEGATIVE) Urine Urobilinogen (0-1) mg/dL Ur Leukocyte Esterase (NEGATIVE) Urine WBC (Auto) (0-5) /HPF Urine RBC (Auto) (0-2) /HPF U Epithel Cells (Auto) (FEW) /HPF Urine Bacteria (Auto) (NEGATIVE) /HPF Amorphous Crystals (NEGATIVE) /HPF Urine Mucus (Auto) (NEGATIVE) /HPF Urine Culture Reflexed (NO) Urine Glucose (NEGATIVE) mg/dL Urine Opiates Level (NEGATIVE) Ur Methadone (NEGATIVE) Urine Barbiturates (NEGATIVE) Ur Phencyclidine (PCP) (NEGATIVE) Urine Amphetamine (NEGATIVE) U Benzodiazepine Level (NEGATIVE) Urine Cocaine (NEGATIVE) Urine Marijuana (THC) (NEGATIVE) - Radiology Impressions Radiology Exams & Impressions: Radiology Procedures Category Date Time Status GALLBLADDER [US] Urgent Exams 06/14/19 10:35 Completed Assessment/Plan (1) RUQ pain Status: Acute Assessment & Plan: Patient had work up for possible cholecystitis and pancreatitis last admission. She was discharged on Wednesday and came back for same symptoms night. Patient feels phenegran is working better than zofran. She was refusing to eat. She was told she could not have pain meds without taking them with food. Patient had negative workup for cholecystitis. She has been afebrile and liver and pancreatic enzymes were all wnl. Her WBC level is slightly elevated which could be related to the . UA was neg for UTI. US of RUQ and US were wnl. VS have been stable. Patient's bp has not been elevated even with the severity of pain she has been describing. Plan for discharge back to detention with expected routine ob follow up in Jun. Patient was instructed that she will need to maintain and low fat diet until she delivers and can be scheduled for surgery. Nurse discussed this diet plan with detention. Also told patient that she could potentially have pain until she can have her GB removed. Code(s): R10.11 - RIGHT UPPER QUADRANT PAIN (2) Status: Acute Qualifiers: Weeks of gestation: 27 weeks Qualified Code(s): Z3A.27 - 27 weeks gestation of Assessment & Plan: 28 yr old G2 at 27 weeks that presented to [facility] and D for RUQ. Patient was discharged on Wednesday for similar symptoms. Patient likely has dysfunctional or hypofunctioning GB. AFLP HELLP Pre-eclampsia with severe features and pancreatitis UTI were ruled out based on repeat imaging and labs. Patient will follow up for routine OB care with Dr Lane Code(s): Z34.90 - ENCNTR FOR SUPRVSN OF NORMAL , UNSP, UNSP TRIMESTER Hospital Summary - Hospital Course Hospital Course: Patient was admitted to observation. She had CBC CMP lipase amylase UA Urine drug screen performed. Patient was started on LR and nubain for pain relief. Patient was also started on zofran. Patient was still complaining of pain and received Tylenol. Patient denied any improvement. Patient had repeat US studies performed which were wnl. Patient did not want continuos monitoring but wanted to have dopplers performed every 8 hours. Patient had x3 episodes of vomiting. Patient was switched to Phenergran. She was offered Tramadol for pain but was instructed she would need to eat prior to having narcotics as to not upset her stomach. She refused to eat the food items provided including sprite and crackers. It was felt that patient could go back to detention and continue with phenergran for nausea and vomiting. She will need to be on a low fat diet and weekly weights to make sure she is gaining weight appropriately during preg. Plan for HIDA scan and possible surgery after patient has delivered. Drug screen was positive for marijuana. Patient denies use but this can contribute to hyperemesis as well. - Vitals & Intake/Output Vital Signs: Vital Signs Temperature 98.2 F 06/14/19 08:00 Pulse Rate 76 06/14/19 11:47 Respiratory Rate 20 06/14/19 15:57 Blood Pressure 113/51 06/14/19 15:57 O2 Sat by Pulse Oximetry Oxygen-Last Documented O2 Percentage 5 Liters = 40% Intake & Output: Intake & Output 06/12/19 06/13/19 06/14/19 06/15/19 11:59 11:59 11:59 11:59 Intake Total 0 Balance 0 Weight 72.91 kg - Lab Result Diagrams: 06/14/19 01:17 06/14/19 01:17 Lab Results-Last 24 Hrs: Lab Results-Last 24 Hours 06/13/19 06/13/19 06/14/19 Range/Units 23:45 23:45 01:17 WBC 14.3 H (4.0-10.5) K/mm3 RBC 3.54 L (4.1-5.4) M/mm3 Hgb 10.7 L (12.0-16.0) gm/dl Hct 32.7 L (35-47) % MCV 92.4 (78-100) fl MCH 30.2 (26-32) pg MCHC 32.7 (32-36) g/dl RDW 14.6 H (11.5-14.0) % Plt Count 314 (150-450) K/mm3 MPV 9.3 (6-9.5) fl Segmented Neutrophils 75 H (36.0-66.0) % Band Neutrophils 4 H (0.0-2.0) % Lymphocytes (Manual) 17 L (24-44) % Monocytes (Manual) 4 (0.0-12.0) % Platelet Estimate NORMAL (NORMAL) RBC Morphology NORMAL Sodium (137-145) mmol/L Potassium (3.5-5.1) mmol/L Chloride (98-107) mmol/L Carbon Dioxide (22-30) mmol/L Anion Gap (5-15) MEQ/L BUN (7-17) mg/dL Creatinine (0.52-1.04) mg/dL Estimated GFR ML/MIN Glucose (74-106) mg/dL Calcium (8.4-10.2) mg/dL Total Bilirubin (0.2-1.3) mg/dL AST (14-36) U/L ALT (0-35) U/L Alkaline Phosphatase (38-126) U/L Serum Total Protein (6.3-8.2) g/dL Albumin (3.5-5.0) g/dL Amylase (30-110) U/L Lipase (23-300) U/L Urine Color YELLOW (YELLOW) Urine Appearance CLOUDY (CLEAR) Urine pH 8.0 (5-6) Ur Specific Hubert 1.017 (1.005-1.025) Urine Protein NEGATIVE (Negative) Urine Ketones NEGATIVE (NEGATIVE) Urine Blood NEGATIVE (0-5) Ramesh/ul Urine Nitrite NEGATIVE (NEGATIVE) Urine Bilirubin NEGATIVE (NEGATIVE) Urine Urobilinogen NEGATIVE (0-1) mg/dL Ur Leukocyte Esterase NEGATIVE (NEGATIVE) Urine WBC (Auto) 6-10 (0-5) /HPF Urine RBC (Auto) NONE SEEN (0-2) /HPF U Epithel Cells (Auto) RARE (FEW) /HPF Urine Bacteria (Auto) NONE (NEGATIVE) /HPF Amorphous Crystals FEW (NEGATIVE) /HPF Urine Mucus (Auto) SLIGHT (NEGATIVE) /HPF Urine Culture Reflexed NO (NO) Urine Glucose NEGATIVE (NEGATIVE) mg/dL Urine Opiates Level NEGATIVE (NEGATIVE) Ur Methadone NEGATIVE (NEGATIVE) Urine Barbiturates NEGATIVE (NEGATIVE) Ur Phencyclidine (PCP) NEGATIVE (NEGATIVE) Urine Amphetamine NEGATIVE (NEGATIVE) U Benzodiazepine Level NEGATIVE (NEGATIVE) Urine Cocaine NEGATIVE (NEGATIVE) Urine Marijuana (THC) POSITIVE (NEGATIVE) 06/14/19 Range/Units 01:17 WBC (4.0-10.5) K/mm3 RBC (4.1-5.4) M/mm3 Hgb (12.0-16.0) gm/dl Hct (35-47) % MCV (78-100) fl MCH (26-32) pg MCHC (32-36) g/dl RDW (11.5-14.0) % Plt Count (150-450) K/mm3 MPV (6-9.5) fl Segmented Neutrophils (36.0-66.0) % Band Neutrophils (0.0-2.0) % Lymphocytes (Manual) (24-44) % Monocytes (Manual) (0.0-12.0) % Platelet Estimate (NORMAL) RBC Morphology Sodium 137 (137-145) mmol/L Potassium 4.0 (3.5-5.1) mmol/L Chloride 104 (98-107) mmol/L Carbon Dioxide 23 (22-30) mmol/L Anion Gap 13.6 (5-15) MEQ/L BUN 6 L (7-17) mg/dL Creatinine 0.29 L (0.52-1.04) mg/dL Estimated GFR > 60.0 ML/MIN Glucose 78 (74-106) mg/dL Calcium 9.2 (8.4-10.2) mg/dL Total Bilirubin 0.20 (0.2-1.3) mg/dL AST 18 (14-36) U/L ALT 17 (0-35) U/L Alkaline Phosphatase 73 (38-126) U/L Serum Total Protein 7.1 (6.3-8.2) g/dL Albumin 3.7 (3.5-5.0) g/dL Amylase 104 (30-110) U/L Lipase 80 (23-300) U/L Urine Color (YELLOW) Urine Appearance (CLEAR) Urine pH (5-6) Ur Specific Hubert (1.005-1.025) Urine Protein (Negative) Urine Ketones (NEGATIVE) Urine Blood (0-5) Ramesh/ul Urine Nitrite (NEGATIVE) Urine Bilirubin (NEGATIVE) Urine Urobilinogen (0-1) mg/dL Ur Leukocyte Esterase (NEGATIVE) Urine WBC (Auto) (0-5) /HPF Urine RBC (Auto) (0-2) /HPF U Epithel Cells (Auto) (FEW) /HPF Urine Bacteria (Auto) (NEGATIVE) /HPF Amorphous Crystals (NEGATIVE) /HPF Urine Mucus (Auto) (NEGATIVE) /HPF Urine Culture Reflexed (NO) Urine Glucose (NEGATIVE) mg/dL Urine Opiates Level (NEGATIVE) Ur Methadone (NEGATIVE) Urine Barbiturates (NEGATIVE) Ur Phencyclidine (PCP) (NEGATIVE) Urine Amphetamine (NEGATIVE) U Benzodiazepine Level (NEGATIVE) Urine Cocaine (NEGATIVE) Urine Marijuana (THC) (NEGATIVE) - Radiology Exams Ordered Rad Exams-Entire Visit: Radiology Procedures Category Date Time Status GALLBLADDER [US] Urgent Exams 06/14/19 10:35 Completed - Discharge Disposition: XFER OTHER Condition: Good Prescriptions: No Action Pnv No.95/Ferrous Fum/Folic AC [ Vitamins Tablet] 1 tab PO DAILY Instructions: Low Cholesterol, Saturated Fat, and Trans Fat Diet Additional Instructions: PT MAY HAVE BENADRYL 25MG PO AT BEDTIME NEEDED FOR SLEEP. USE PHENERGAN NEEDED FOR NAUSEA. FOLLOW LOW FAT DIET, WITH PROTEIN SHAKES NEEDED FOR NUTRITION. DO WEEKLY WEIGHT CHECKS TO ENSURE PROPER WEIGHT GAIN WITH . MAY TAKE TYLENOL NEEDED FOR PAIN. Follow up with: MARY LANE [Primary Care Provider] - 1 Week (DR LANE IS OUT THIS WEEK AND NEXT. PLEASE FOLLOW UP WITHIN A WEEK AT DR GARCIA OR DR TREVINO'S OFFICE. )
== END 2019-06-14 16:00 ==
LOC: OB 23:12
PROVIDERS: ADMIT Family Medicine; ATTEND Family Medicine
DX: O26.892 Other specified pregnancy related conditions, second trimester (principal); Z3A.27 27 weeks gestation of pregnancy; R10.11 Right upper quadrant pain; R11.2 Nausea with vomiting, unspecified
CPT/HCPCS: 36415; 76705; 80053; 80307; 81001; 82150; 83690; 85025; G0378; J2300; J2405; J2550

== ENCOUNTER 2020-03-30 13:55 | Emergency (ER) | payer OTHER ==
[2020-03-30] MEDS ORDERED: Zofran 4 MG/2 ML VIAL IV ONE (14:36)
[2020-03-30] MEDS ORDERED: Sodium Chloride 0.9% 1000 ML 1,000 ML IV STA (14:36)
[2020-03-30] MEDS ORDERED: MORPHINE SULFATE 4 MG INJ IV ONE (14:36)
[2020-03-30] MEDS ORDERED: Zofran 4 MG/2 ML VIAL ONE (14:46)
[2020-03-30] MEDS ORDERED: Sodium Chloride 0.9% 1000 ML 1,000 ML ONE (14:47)
[2020-03-30] MEDS ORDERED: MORPHINE SULFATE 4 MG INJ ONE (14:47)
[2020-03-30 15:07] LABS: Absolute Neutrophil Ct (ANC) 5.52 (1.4-6.9); BASOPHIL % 0.2 % (0.0-0.4); Basophil (Absolute #) 0.02 (0-0.4); Eosinophil % 0.7 % (0.00-5.0); Eosinophil (Absolute #) 0.06 (0-0.5); Hematocrit 40.2 % (35-47); Hemoglobin 13.6 gm/dl (12.0-16.0); Lymphocyte (Absolute #) 2.36 (1.0-4.6); Lymphocytes % 26.9 % (24.0-44.0); Mean Cell Volume 87.6 fl (78-100); Mean Corpuscular Hemoglobin 29.6 pg (26-32); Mean Corpuscular Hgb Concent. 33.8 g/dl (32-36); Mean Platelet Volume 9.7 fl (7.5-11.0); Monocytes % 9.1 % (0.0-12.0); Neutrophil % 63.1 % (36.0-66.0); Platelet Count 338 K/mm3 (150-450); Red Blood Count 4.59 M/mm3 (4.1-5.4); Red Cell Distribution Width 13.7 % (11.5-14.0); White Blood Count 8.8 K/mm3 (4.0-10.5)
[2020-03-30 15:21] LABS: ALBUMIN 4.9 g/dL (3.5-5.0); ALKALINE PHOSPHATASE 106 U/L (38-126); ANION GAP 16.6 MEQ/L (5-15); BLOOD UREA NITROGEN 8 mg/dL (7-17); CHLORIDE 102 mmol/L (98-107); Calcium 9.6 mg/dL (8.4-10.2); Carbon Dioxide 23 mmol/L (22-30); Creatinine 1 0.69 mg/dL (0.52-1.04); Glucose 84 mg/dL (74-106); LIPASE 133 U/L (23-300); Potassium 4.1 mmol/L (3.5-5.1); SGOT/AST 27 U/L (14-36); SGPT/ALT 30 U/L (0-35); SODIUM 138 mmol/L (137-145); Total Protein 8.2 g/dL (6.3-8.2)
--- NOTE | 2020-03-30 15:33 | ERPHSYRPT ---
- History of Present Illness Time Seen by Provider: 03/30/20 14:50 Historian: patient Exam Limitations: no limitations Patient Subjective Stated Complaint: upper right quad pain 10/10, vomiting/nausea this am, diarrhea last noc, diaphoresis last noc, acid reflux this am. Triage Nursing Assessment: pt alert and oriented x 3. able to voice wants and needs. skin w/d. guarding right side. states she is in pain, 10/10. lung das clear. bowel sounds x 4. abd soft, tender with palpation. Physician History: 29 years old female presented in the ER with chief complaint of right upper quadrant pain since yesterday, sudden onset, moderate to severe intensity, associated with multiple episodes of nonprojectile, nonbilious vomiting with no hematemesis. She is not able to hold anything down since this morning. Patient reports having similar episode few months back when she was . Timing/Duration: yesterday, sudden, worse Activities at Onset: rest Quality: sharpness Abdominal Pain Onset Location: RUQ Pain Radiation: no radiation Severity of Pain-Max: moderate Severity of Pain-Current: moderate Modifying Factors: Improves With: vomiting Associated Symptoms: nausea, vomiting Previous symptoms: no prior history Allergies/Adverse Reactions: amoxicillin [Amoxicillin] Allergy (Severe, Verified 06/08/19 22:20) Hives Penicillins Allergy (Intermediate, Verified 03/30/20 15:07) Difficulty Swallowing Home Medications: Pnv No.95/Ferrous Fum/Folic AC [ Vitamins Tablet] 1 tab PO DAILY 05/19/19 [History] Hx Tetanus, Diphtheria Vaccination/Date Given: Yes Hx Influenza Vaccination/Date Given: No Hx Pneumococcal Vaccination/Date Given: No Immunizations Up to Date: Yes Travel Risk - International Travel If Yes, where;: N - Coronavirus Screening Close contact with a COVID-19 positive Pt in past 14-21 Days: No - Review of Systems Constitutional: No Symptoms Eyes: No Symptoms Ears, Nose, & Throat: No Symptoms Respiratory: No Symptoms Cardiac: No Symptoms Abdominal/Gastrointestinal: Abdominal Pain, Nausea, Vomiting Genitourinary Symptoms: No Symptoms Musculoskeletal: No Symptoms Skin: No Symptoms Neurological: No Symptoms Psychological: No Symptoms Endocrine: No Symptoms Hematologic/Lymphatic: No Symptoms Immunological/Allergic: No Symptoms - Past Medical History Pertinent Past Medical History: Yes Neurological History: No Pertinent History ENT History: No Pertinent History Cardiac History: Other Respiratory History: No Pertinent History Endocrine Medical History: No Pertinent History Musculoskeletal History: No Pertinent History GI Medical History: No Pertinent History History: No Pertinent History Psycho-Social History: Anxiety, Depression Female Reproductive Disorders: No Pertinent History Other Medical History: FAST HEART RATE - Past Surgical History Past Surgical History: Yes Neuro Surgical History: No Pertinent History Cardiac: No Pertinent History Respiratory: No Pertinent History Gastrointestinal: Appendectomy Genitourinary: No Pertinent History Musculoskeletal: No Pertinent History Female Surgical History: No Pertinent History Other Surgical History: TONSILS - Social History Smoking Status: Never smoker How long have you smoked: 10 yrs Exposure to second hand smoke: No Drug Use: marijuana Patient Lives Alone: No Significant Family History: no pertinent family hx - Female History Hx Last Menstrual Period: 03/11/20 Hx Now: No - Nursing Vital Signs Nursing Vital Signs: Initial Vital Signs Temperature 97.5 F 03/30/20 14:21 Pulse Rate 105 H 03/30/20 14:21 Respiratory Rate 18 03/30/20 14:21 Blood Pressure 121/75 03/30/20 14:21 O2 Sat by Pulse Oximetry 97 03/30/20 14:21 Pain Scale Pain Intensity 7 - Physical Exam General Appearance: no apparent distress Eye Exam: PERRL/EOMI, eyes nml inspection Ears, Nose, Throat Exam: normal ENT inspection, TMs normal Neck Exam: normal inspection, supple, full range of motion Respiratory Exam: normal breath sounds, lungs clear Cardiovascular Exam: regular rate/rhythm, normal heart sounds Gastrointestinal/Abdomen Exam: soft, tenderness (Right upper quadrant. Positive Quintana sign), guarding Back Exam: normal inspection, normal range of motion, No CVA tenderness Extremity Exam: normal inspection Neurologic Exam: alert, oriented x 3, cooperative Skin Exam: normal color SpO2 Interpretation: normal SpO2: 97 O2 Delivery: Room Air Ordered Tests: Active Orders 24 hr Category Date Time Status NPO (ED) STAT Care 03/30/20 14:36 Active ABDOMEN AND PELVIS W CONTRAST [CT] Stat Exams 03/30/20 14:36 Taken GALLBLADDER [US] Stat Exams 03/30/20 16:51 Ordered CBC W DIFF Stat Lab 03/30/20 14:55 Completed CMP Stat Lab 03/30/20 14:55 Completed HCG,QUALITATIVE URINE Stat Lab 03/30/20 15:05 Completed LIPASE Stat Lab 03/30/20 14:55 Completed UA W/RFX UR CULTURE Stat Lab 03/30/20 15:05 Completed Medication Summary Discontinued Medications Generic Name Dose Route Start Last Admin Trade Name Saulo PRN Reason Stop Dose Admin Sodium Chloride 1,000 mls @ 999 mls/hr 03/30/20 14:36 03/30/20 16:00 Sodium Chloride 0.9% 1000 Ml IV 03/30/20 15:36 Infused .Q1H1M STA Infusion Sodium Chloride Confirm 03/30/20 14:47 Sodium Chloride 0.9% 1000 Ml Administered 03/30/20 14:48 Dose 1,000 mls @ ud .ROUTE .STK-MED ONE Morphine Sulfate 4 mg 03/30/20 14:36 03/30/20 14:50 Morphine Sulfate 4 Mg Inj IV 03/30/20 14:37 4 mg STAT ONE Administration Morphine Sulfate Confirm 03/30/20 14:47 Morphine Sulfate 4 Mg Inj Administered 03/30/20 14:48 Dose 4 mg .ROUTE .STK-MED ONE Ondansetron HCl 4 mg 03/30/20 14:36 03/30/20 14:51 Zofran 4 Mg/2 Ml Vial IV 03/30/20 14:37 4 mg STAT ONE Administration Ondansetron HCl Confirm 03/30/20 14:46 Zofran 4 Mg/2 Ml Vial Administered 03/30/20 14:47 Dose 4 mg .ROUTE .STK-MED ONE Promethazine HCl 25 mg 03/30/20 16:36 03/30/20 16:42 Phenergan 25 Mg Inj IM 03/30/20 16:37 25 mg STAT ONE Administration Promethazine HCl Confirm 03/30/20 16:40 Phenergan 25 Mg Inj Administered 03/30/20 16:41 Dose 25 mg .ROUTE .STK-MED ONE Lab/Rad Data: Laboratory Result Diagrams 03/30/20 14:55 03/30/20 14:55 Laboratory Results 03/30/20 03/30/20 03/30/20 Range/Units 15:05 15:05 14:55 WBC (4.0-10.5) K/mm3 RBC (4.1-5.4) M/mm3 Hgb (12.0-16.0) gm/dl Hct (35-47) % MCV (78-100) fl MCH (26-32) pg MCHC (32-36) g/dl RDW (11.5-14.0) % Plt Count (150-450) K/mm3 MPV (7.5-11.0) fl Gran % (36.0-66.0) % Eos # (Auto) (0-0.5) Absolute Lymphs (auto) (1.0-4.6) Absolute Monos (auto) (0.0-1.3) Lymphocytes % (24.0-44.0) % Monocytes % (0.0-12.0) % Eosinophils % (0.00-5.0) % Basophils % (0.0-0.4) % Absolute Granulocytes (1.4-6.9) Basophils # (0-0.4) Sodium 138 (137-145) mmol/L Potassium 4.1 (3.5-5.1) mmol/L Chloride 102 (98-107) mmol/L Carbon Dioxide 23 (22-30) mmol/L Anion Gap 16.6 H (5-15) MEQ/L BUN 8 (7-17) mg/dL Creatinine 0.69 (0.52-1.04) mg/dL Estimated GFR > 60.0 ML/MIN Glucose 84 (74-106) mg/dL Calcium 9.6 (8.4-10.2) mg/dL Total Bilirubin 0.40 (0.2-1.3) mg/dL AST 27 (14-36) U/L ALT 30 (0-35) U/L Alkaline Phosphatase 106 (38-126) U/L Serum Total Protein 8.2 (6.3-8.2) g/dL Albumin 4.9 (3.5-5.0) g/dL Lipase 133 (23-300) U/L Urine Color YELLOW (YELLOW) Urine Appearance SLIGHTLY CLOUDY (CLEAR) Urine pH 7.0 (5-6) Ur Specific [place] 1.012 (1.005-1.025) Urine Protein NEGATIVE (Negative) Urine Ketones SMALL (NEGATIVE) Urine Blood NEGATIVE (0-5) Ramesh/ul Urine Nitrite NEGATIVE (NEGATIVE) Urine Bilirubin NEGATIVE (NEGATIVE) Urine Urobilinogen NEGATIVE (0-1) mg/dL Ur Leukocyte Esterase SMALL (NEGATIVE) Urine WBC (Auto) 0-2 (0-5) /HPF Urine RBC (Auto) NONE (0-2) /HPF U Epithel Cells (Auto) FEW (FEW) /HPF Urine Bacteria (Auto) RARE (NEGATIVE) /HPF Urine Culture Reflexed NO (NO) Urine Glucose NEGATIVE (NEGATIVE) mg/dL Urine HCG, Qual NEGATIVE (Negative) 03/30/20 Range/Units 14:55 WBC 8.8 (4.0-10.5) K/mm3 RBC 4.59 (4.1-5.4) M/mm3 Hgb 13.6 (12.0-16.0) gm/dl Hct 40.2 (35-47) % MCV 87.6 (78-100) fl MCH 29.6 (26-32) pg MCHC 33.8 (32-36) g/dl RDW 13.7 (11.5-14.0) % Plt Count 338 (150-450) K/mm3 MPV 9.7 (7.5-11.0) fl Gran % 63.1 (36.0-66.0) % Eos # (Auto) 0.06 (0-0.5) Absolute Lymphs (auto) 2.36 (1.0-4.6) Absolute Monos (auto) 0.80 (0.0-1.3) Lymphocytes % 26.9 (24.0-44.0) % Monocytes % 9.1 (0.0-12.0) % Eosinophils % 0.7 (0.00-5.0) % Basophils % 0.2 (0.0-0.4) % Absolute Granulocytes 5.52 (1.4-6.9) Basophils # 0.02 (0-0.4) Sodium (137-145) mmol/L Potassium (3.5-5.1) mmol/L Chloride (98-107) mmol/L Carbon Dioxide (22-30) mmol/L Anion Gap (5-15) MEQ/L BUN (7-17) mg/dL Creatinine (0.52-1.04) mg/dL Estimated GFR ML/MIN Glucose (74-106) mg/dL Calcium (8.4-10.2) mg/dL Total Bilirubin (0.2-1.3) mg/dL AST (14-36) U/L ALT (0-35) U/L Alkaline Phosphatase (38-126) U/L Serum Total Protein (6.3-8.2) g/dL Albumin (3.5-5.0) g/dL Lipase (23-300) U/L Urine Color (YELLOW) Urine Appearance (CLEAR) Urine pH (5-6) Ur Specific [place] (1.005-1.025) Urine Protein (Negative) Urine Ketones (NEGATIVE) Urine Blood (0-5) Ramesh/ul Urine Nitrite (NEGATIVE) Urine Bilirubin (NEGATIVE) Urine Urobilinogen (0-1) mg/dL Ur Leukocyte Esterase (NEGATIVE) Urine WBC (Auto) (0-5) /HPF Urine RBC (Auto) (0-2) /HPF U Epithel Cells (Auto) (FEW) /HPF Urine Bacteria (Auto) (NEGATIVE) /HPF Urine Culture Reflexed (NO) Urine Glucose (NEGATIVE) mg/dL Urine HCG, Qual (Negative) - Progress Progress: improved, re-examined Progress Note: 29 years old is evaluated for right upper quadrant pain with vomiting. Patient symptoms/signs are suggestive of cholecystitis. She has a normal white count, unremarkable chemistries including liver enzymes. She is given pain medication and fluids, CT showed questionable findings suggesting gallbladder sludge versus stones. Patient does have history of cholecystitis in the past. I believe patient is having another attack. I have discussed with patient about admission versus going home and outpatient follow-up with Dr. Antonette Reyes which she has seen in the past for same problem. She does not want to stay and will would prefer to go home on pain medication and Zofran. On repeated evaluation she does not have any peritoneal signs. Discussed with patient in detail about symptoms/signs of worsening needing return to ER which she seems understanding. Stable for discharge. 03/30/20 17:34 Counseled pt/family regarding: lab results, diagnosis, need for follow-up, rad results - Departure Departure Disposition: Home Clinical Impression: Cholecystitis Condition: Stable Critical Care Time: No Referrals: MARY GUTIERREZ [Primary Care Provider] - Follow Up with PCP/3 days CARMEN ALMANZAR [COURTESY STAFF] - (2 days for reevaluation) Instructions: Acute Abdomen (Belly Pain), Gallstones (DC) Additional Instructions: Take Zofran pain medications as needed. Avoid fatty food. Follow-up with general surgery for reevaluation Fabiano morning. Return to ER for any wor sening. Prescriptions: Hydrocodone/APAP 5/325 [[place] 5/325 mg] 1 each PO Q6H PRN PRN #10 tablet MDD 4 PRN Reason: Pain Ondansetron ODT 4 MG [Zofran Odt 4 mg] 4 mg PO Q6H PRN PRN #10 tab.rapdis PRN Reason: Vomiting
[2020-03-30 15:36] LABS: Appearance SLIGHTLY CLOUDY (CLEAR); Bacteria RARE /HPF (NEGATIVE); Bilirubin NEGATIVE (NEGATIVE); Blood NEGATIVE Ery/ul (0-5); Epithelial Cells FEW /HPF (FEW); Glucose NEGATIVE (NEGATIVE); Ketones SMALL (NEGATIVE); Leukocyte Esterase SMALL (NEGATIVE); Nitrite NEGATIVE (NEGATIVE); Protein,Urine Dip NEGATIVE (Negative); Specific Gravity 1.012 (1.005-1.025); Urobilinogen NEGATIVE mg/dL (0-1); WBC 0-2 /HPF (0-5)
[2020-03-30] MEDS ORDERED: Phenergan 25 MG INJ IM ONE (16:36)
[2020-03-30] MEDS ORDERED: Phenergan 25 MG INJ ONE (16:40)
[2020-03-30 17:54] VITALS: BP 114/63; PULSE 68; O2SAT 100
--- NOTE | 2020-03-30 22:12 | XRAY ---
Indication: Right upper quadrant pain. Nausea and vomiting. Multiple contiguous axial images obtained through the abdomen and pelvis using 80 cc Isovue 370 contrast only. Comparison: None Lung bases are clear. Heart is not enlarged. 1.4 cm distal paraesophageal calcified node. Noncontrasted stomach and bowel loops appear nonobstructed. Appendectomy reported. Mild diffuse scattered colonic fecal debris throughout. 2.7 cm right ovary cyst. No free fluid/air. Hepatic/splenic aspect granulomas. Remaining liver, gallbladder, pancreas, spleen, adrenal glands, kidneys, ureters, bladder, uterus, and aorta appear unremarkable. No pathologic retroperitoneal lymphadenopathy. Osseous structures intact. No ventral or inguinal hernias. Impression: 1. 2.7 cm right ovary cyst. Pelvic sonogram may yield further information if there remains clinical concern. 2. Fecal stasis and evidence for old granulomatous disease. Comment: Preliminary interpretation was made by [facility]. No critical discrepancy.
== END 2020-03-30 17:55 | disposition home or self-care (01) ==
LOC: ED 13:55
DX: K81.9 Cholecystitis, unspecified (principal)
CPT/HCPCS: 36415; 74177; 80053; 81001; 83690; 84703; 85025; 96360; 96372; 96374; 96375; 99284; J2270; J2405; J2550

== ENCOUNTER 2021-03-15 18:27 | Observation (INO) | payer OTHER ==
[2021-03-15 19:20] LABS: Appearance SLIGHTLY CLOUDY (CLEAR); Bacteria RARE /HPF (NEGATIVE); Bilirubin NEGATIVE (NEGATIVE); Blood NEGATIVE Ery/ul (0-5); Epithelial Cells FEW /HPF (FEW); Glucose NEGATIVE (NEGATIVE); Ketones NEGATIVE (NEGATIVE); Leukocyte Esterase TRACE (NEGATIVE); Mucus SLIGHT /HPF (NEGATIVE); Nitrite NEGATIVE (NEGATIVE); Protein,Urine Dip 30 (Negative); Urobilinogen 4 mg/dL (0-1)
[2021-03-15 19:29] LABS: Amphetamine,Urine NEGATIVE (NEGATIVE); Barbiturate,Urine NEGATIVE (NEGATIVE); Benzodiazepine,Urine NEGATIVE (NEGATIVE); Cocaine,Urine NEGATIVE (NEGATIVE); Methadone,Urine NEGATIVE (NEGATIVE); Opiate,Urine NEGATIVE (NEGATIVE); PCP,Urine NEGATIVE (NEGATIVE); THC,Urine NEGATIVE (NEGATIVE)
[2021-03-15] MEDS ORDERED: Lactated Ringers 1,000 ML IV ONE ×3 (20:11→20:34)
[2021-03-15] MEDS ORDERED: MORPHINE SULFATE 4 MG INJ IV PRN ×2 (20:18→23:46)
[2021-03-15] MEDS ORDERED: Zofran 4 MG/2 ML VIAL IV PRN (20:18)
[2021-03-15] MEDS ORDERED: Zofran 4 MG/2 ML VIAL ONE (20:33)
[2021-03-15] MEDS ORDERED: MORPHINE SULFATE 4 MG INJ ONE ×2 (20:34→23:59)
[2021-03-15 20:39] LABS: Absolute Neutrophil Ct (ANC) 7.57 (1.4-6.9); BASOPHIL % 0.2 % (0.0-0.4); Basophil (Absolute #) 0.02 (0-0.4); Eosinophil % 0.8 % (0.00-5.0); Eosinophil (Absolute #) 0.08 (0-0.5); Hematocrit 34.8 % (35-47); Hemoglobin 11.3 gm/dl (12.0-16.0); Lymphocyte (Absolute #) 1.94 (1.0-4.6); Mean Cell Volume 94.8 fl (78-100); Mean Corpuscular Hemoglobin 30.8 pg (26-32); Mean Corpuscular Hgb Concent. 32.5 g/dl (32-36); Mean Platelet Volume 9.4 fl (7.5-11.0); Monocyte (Absolute #) 0.62 (0.0-1.3); Monocytes % 6.1 % (0.0-12.0); Neutrophil % 73.9 % (36.0-66.0); Platelet Count 298 K/mm3 (150-450); Red Blood Count 3.67 M/mm3 (4.1-5.4); Red Cell Distribution Width 13.5 % (11.5-14.0); White Blood Count 10.2 K/mm3 (4.0-10.5)
[2021-03-15 20:47] LABS: ALBUMIN 3.6 g/dL (3.5-5.0); ALKALINE PHOSPHATASE 113 U/L (38-126); AMYLASE 61 U/L (30-110); ANION GAP 11.2 MEQ/L (5-15); BLOOD UREA NITROGEN 8 mg/dL (7-17); CHLORIDE 105 mmol/L (98-107); Calcium 8.8 mg/dL (8.4-10.2); Carbon Dioxide 23 mmol/L (22-30); Creatinine 1 0.57 mg/dL (0.52-1.04); EST GLOMERULAR FILTRATION RATE > 60.0 ML/MIN; Glucose 83 mg/dL (74-106); LIPASE 76 U/L (23-300); Potassium 4.1 mmol/L (3.5-5.1); SGOT/AST 20 U/L (14-36); SGPT/ALT 17 U/L (0-35); SODIUM 135 mmol/L (137-145); Total Protein 6.5 g/dL (6.3-8.2)
[2021-03-15] MEDS ORDERED: PROTONIX 40 MG IV IV SCH (21:00)
[2021-03-15] MEDS ORDERED: Lactated Ringers 1,000 ML IV SCH (21:30)
[2021-03-15] MEDS ORDERED: PROTONIX 40 MG IV IV ONE (21:33)
[2021-03-15] MEDS ORDERED: NEURONTIN 300 MG PO SCH (22:00)
[2021-03-15] MEDS ORDERED: Phenergan 25 MG INJ*** 12.5 MG in Sodium Chloride 0.9% 100 ML BAG 100 ML IV PRN (23:47)
[2021-03-16] MEDS ORDERED: Phenergan 25 MG INJ ONE (00:01)
[2021-03-16] MEDS ORDERED: Sodium Chloride 0.9% 100 ML BAG 100 ML ONE (00:02)
[2021-03-16 01:02] VITALS: BP 94/55
[2021-03-16 02:38] VITALS: PULSE 102; O2SAT 98
--- NOTE | 2021-03-16 07:25 | XRAY ---
Indication: Abdomen pain. Abruption. Comparison: None Limited OB ultrasound demonstrates single intrauterine with heart rate 142 BPM. Anterior placenta with possible hemorrhage along the inferior tip of the placenta. Comment: Preliminary interpretation was made by [facility]. No critical discrepancy.
[2021-03-16] MEDS ORDERED: Wellbutrin XL 150 MG PO SCH (10:00)
== END 2021-03-16 01:13 | disposition home or self-care (01) ==
LOC: OB 18:27
PROVIDERS: ADMIT Family Medicine; ATTEND Family Medicine
DX: O26.893 Other specified pregnancy related conditions, third trimester (principal); Z3A.36 36 weeks gestation of pregnancy; R10.11 Right upper quadrant pain; R11.10 Vomiting, unspecified; K82.9 Disease of gallbladder, unspecified
CPT/HCPCS: 36415; 76815; 80053; 80307; 81001; 82150; 83605; 83690; 85025; 87086; G0378; 87077; J2270; J2405; J2550

== ENCOUNTER 2022-08-03 22:01 | Emergency (ER) | payer OTHER ==
[2022-08-03 23:52] LABS: Appearance SLIGHTLY CLOUDY (CLEAR); Bilirubin NEGATIVE (NEGATIVE); Dipstick done @ ? MAIN LAB; Glucose NEGATIVE (NEGATIVE); Ketones NEGATIVE (NEGATIVE); Nitrite NEGATIVE (NEGATIVE); Ph 7.5 (5-6); Protein,Urine Dip NEGATIVE (Negative); RBC TRACE-INTACT Ery/ul (0-5); Urobilinogen 0.2 mg/dL (0-1)
[2022-08-04 00:01] LABS: Epithelial Cells RARE /HPF (FEW); RBC 0-2 /HPF (0-2); WBC 0-2 /HPF (0-5)
[2022-08-04 00:07] LABS: Urine Cultured Indicated? NO
[2022-08-04 00:11] LABS: Amphetamine,Urine NEGATIVE (NEGATIVE); Barbiturate,Urine NEGATIVE (NEGATIVE); Benzodiazepine,Urine NEGATIVE (NEGATIVE); Cocaine,Urine NEGATIVE (NEGATIVE); Methadone,Urine NEGATIVE (NEGATIVE); Opiate,Urine NEGATIVE (NEGATIVE); PCP,Urine NEGATIVE (NEGATIVE); THC,Urine NEGATIVE (NEGATIVE)
[2022-08-04] MEDS ORDERED: MORPHINE SULFATE 2 MG INJ IV ONE (01:07)
[2022-08-04] MEDS ORDERED: Zofran 4 MG/2 ML VIAL IV ONE (01:08)
--- NOTE | 2022-08-04 01:13 | ERPHSYRPT ---
- History of Present Illness Time Seen by Provider: 08/03/22 22:10 Historian: patient Physician History: Patient a 31-year-old female presents to our ED with complaints of right upper quadrant pain. Patient is currently 21 weeks . Patient was seen by OB and was cleared from an OB perspective. Patient was sent down here for a right upper quadrant work-up. Patient states she had a "bad gallbladder" during her last . Patient states she was supposed to undergo a cholecy stectomy however she became before she can undergo cholecystectomy. Patient states she had a tackle dinner this evening and pain occurred. Pain described as an ache that is localized to the right upper quadrant. Patient is nauseous and vomiting. Symptoms are mild to moderate in intensity. No specific worsening improving factors. Patient voices no other complaints or concerns at this time. Portions of this note were created with voice recognition technology. There may be grammatical, spelling, punctuation or sound alike errors Timing/Duration: today Activities at Onset: none Quality: aching Abdominal Pain Onset Location: RUQ Pain Radiation: no radiation Severity of Pain-Max: moderate Severity of Pain-Current: mild Modifying Factors: Improves With: nothing Associated Symptoms: nausea, vomiting Previous symptoms: same symptoms as today Allergies/Adverse Reactions: amoxicillin [Amoxicillin] Allergy (Severe, Verified 08/04/22 01:17) Hives Penicillins Allergy (Intermediate, Verified 08/04/22 01:17) Difficulty Swallowing Home Medications: Pnv No.95/Ferrous Fum/Folic AC [ Vitamins Tablet] 1 tab PO DAILY 05/19/19 [History] Gabapentin 600 mg PO QID 03/15/21 [History] ARIPiprazole [Aripiprazole] 20 mg PO HS 08/04/22 [History] Lamotrigine [Lamotrigine ER] 25 mg PO HS 08/04/22 [History] Lorazepam 1 mg [Ativan 1 MG] 1 tab PO TID PRN PRN 08/04/22 [History] Hx Tetanus, Diphtheria Vaccination/Date Given: Yes Hx Influenza Vaccination/Date Given: No Hx Pneumococcal Vaccination/Date Given: No Travel Risk - International Travel Have you traveled outside of the country in past 3 weeks: No - Coronavirus Screening Are you exhibiting any of the following symptoms?: No Close contact with a COVID-19 positive Pt in past 14-21 Days: No - Vaccine Status Have you recieved a Covid-19 vaccination: No - Review of Systems Constitutional: No Symptoms, No Fever, No Chills Eyes: No Symptoms Ears, Nose, & Throat: No Symptoms Respiratory: No Symptoms, No Cough, No Dyspnea Cardiac: No Symptoms, No Chest Pain, No Edema, No Syncope Abdominal/Gastrointestinal: No Symptoms, No Abdominal Pain, No Nausea, No Vomiting, No Diarrhea Genitourinary Symptoms: No Symptoms, No Dysuria Musculoskeletal: No Symptoms, No Back Pain, No Neck Pain Skin: No Symptoms, No Rash Neurological: No Symptoms, No Dizziness, No Focal Weakness, No Sensory Changes Psychological: No Symptoms Endocrine: No Symptoms Hematologic/Lymphatic: No Symptoms Immunological/Allergic: No Symptoms All Other Systems: Reviewed and Negative - Past Medical History Pertinent Past Medical History: Yes Neurological History: No Pertinent History ENT History: No Pertinent History Cardiac History: Other Respiratory History: No Pertinent History Endocrine Medical History: No Pertinent History Musculoskeletal History: No Pertinent History GI Medical History: No Pertinent History History: No Pertinent History Psycho-Social History: Anxiety, Depression Female Reproductive Disorders: No Pertinent History Other Medical History: FAST HEART RATE - Past Surgical History Past Surgical History: Yes Neuro Surgical History: No Pertinent History Cardiac: No Pertinent History Respiratory: No Pertinent History Gastrointestinal: Appendectomy Genitourinary: No Pertinent History Musculoskeletal: No Pertinent History Female Surgical History: No Pertinent History Other Surgical History: TONSILS - Social History Smoking Status: Never smoker How long have you smoked: 10 yrs Exposure to second hand smoke: No Drug Use: marijuana Patient Lives Alone: No Significant Family History: no pertinent family hx - Female History Expected Date of Delivery: 11/28/22 - Nursing Vital Signs Nursing Vital Signs: Initial Vital Signs Temperature 98.7 F 08/03/22 22:01 Pulse Rate 112 H 08/03/22 22:01 Respiratory Rate 18 08/03/22 22:01 Blood Pressure 113/68 08/03/22 22:01 O2 Sat by Pulse Oximetry 98 08/03/22 22:01 Pain Scale Pain Intensity 6 - Physical Exam General Appearance: no apparent distress, alert Eye Exam: PERRL/EOMI, eyes nml inspection Ears, Nose, Throat Exam: normal ENT inspection, pharynx normal, moist mucous membranes Neck Exam: normal inspection, non-tender, supple, full range of motion Respiratory Exam: normal breath sounds, lungs clear, airway intact, No respiratory distress Cardiovascular Exam: regular rate/rhythm, normal heart sounds, normal peripheral pulses Gastrointestinal/Abdomen Exam: soft, No tenderness, No mass Back Exam: normal inspection, normal range of motion, No CVA tenderness, No vertebral tenderness Extremity Exam: normal inspection, normal range of motion, pelvis stable Neurologic Exam: alert, oriented x 3, cooperative, normal mood/affect, nml cerebellar function, sensation nml, No motor deficits Skin Exam: normal color, warm, dry Lymphatic Exam: No adenopathy SpO2 Interpretation: normal SpO2: 98 O2 Delivery: Room Air - Course Nursing assessment & vital signs reviewed: Yes - Radiology Ultrasound Exam Gallbladder Ultrasound: tele radiology report (Per field identification specialist report portal vein is normal pancreas is normal. Common bile duct measures 0.6 cm. Right kidney measures 11.9 x 4.5 x 6.2 cm. Small amount of sludge no gallstones seen.) Ordered Tests: Active Orders 24 hr Category Date Time Status Up Ad Elysia ROUTINE Activity 08/03/22 22:58 Active Admit as Inpatient ROUTINE Care 08/03/22 22:55 Active Heart Monitoring CONTINUOUS Care 08/03/22 22:54 Active Heart Tones [id number] Care 08/03/22 22:54 Active Physician Notification PRN Care 08/03/22 22:[address] in Observation ROUTINE Care 08/03/22 22:57 Active GALLBLADDER [US] Stat Exams 08/04/22 02:07 Taken CBC W DIFF Stat Lab 08/04/22 01:15 Completed CMP Stat Lab 08/04/22 01:15 Completed LIPASE Stat Lab 08/04/22 01:15 Completed Medication Summary Generic Name Dose Route Start Last Admin Trade Name Freq PRN Reason Stop Dose Admin Sodium Chloride 1,000 mls @ 100 mls/hr 08/04/22 01:15 08/04/22 01:34 Sodium Chloride 0.9% 1000 Ml IV 09/03/22 01:14 100 mls/hr .Q10H BRANDYN Administration Discontinued Medications Generic Name Dose Route Start Last Admin Trade Name Freq PRN Reason Stop Dose Admin Morphine Sulfate 2 mg 08/04/22 01:07 08/04/22 01:34 Morphine Sulfate 2 Mg/Ml Inj IV 08/04/22 01:08 2 mg STAT ONE Administration Morphine Sulfate Confirm 08/04/22 01:32 Morphine Sulfate 2 Mg/Ml Inj Administered 08/04/22 01:33 Dose 2 mg .ROUTE .STK-MED ONE Ondansetron HCl 4 mg 08/04/22 01:08 08/04/22 01:34 Ondansetron Hcl 4 Mg/2 Ml Vial IV 08/04/22 01:09 4 mg STAT ONE Administration Ondansetron HCl Confirm 08/04/22 01:31 Ondansetron Hcl 4 Mg/2 Ml Vial Administered 08/04/22 01:32 Dose 4 mg .ROUTE .STK-MED ONE Lab/Rad Data: Laboratory Result Diagrams 08/04/22 01:15 08/04/22 01:15 Laboratory Results 08/04/22 08/04/22 08/03/22 Range/Units 01:15 01:15 Unknown WBC 13.6 H (4.0-10.5) x10^3/uL RBC 3.70 L (4.1-5.4) x10^6/uL Hgb 11.4 L (12.0-16.0) g/dL Hct 35.9 (35-47) % MCV 97.0 (78-100) fL MCH 30.8 (26-32) pg MCHC 31.8 L (32-36) g/dL RDW 13.0 (11.5-14.0) % Plt Count 302 (150-450) x10^3/uL MPV 9.2 (7.5-11.0) fL Gran % 79.9 H (36.0-66.0) % Immature Gran % (Auto) 0.7 H (0.00-0.4) % Nucleat RBC Rel Count 0.0 (0.00-0.1) % Eos # (Auto) 0.07 (0-0.5) x10^3/uL Immature Gran # (Auto) 0.10 H (0.00-0.03) x10^3u/L Absolute Lymphs (auto) 1.74 (1.0-4.6) x10^3/uL Absolute Monos (auto) 0.80 (0.0-1.3) x10^3/uL Absolute Nucleated RBC 0.00 (0.00-0.01) x10^3u/L Lymphocytes % 12.8 L (24.0-44.0) % Monocytes % 5.9 (0.0-12.0) % Eosinophils % 0.5 (0.00-5.0) % Basophils % 0.2 (0.0-0.4) % Absolute Granulocytes 10.82 H (1.4-6.9) x10^3/uL Basophils # 0.03 (0-0.4) x10^3/uL Sodium 134 L (137-145) mmol/L Potassium 3.8 (3.5-5.1) mmol/L Chloride 103 (98-107) mmol/L Carbon Dioxide 24 (22-30) mmol/L Anion Gap 10.7 (5-15) MEQ/L BUN 9 (7-17) mg/dL Creatinine 0.48 L (0.52-1.04) mg/dL Estimated GFR > 60.0 ML/MIN Glucose 94 (74-106) mg/dL Calcium 8.9 (8.4-10.2) mg/dL Total Bilirubin 0.50 (0.2-1.3) mg/dL AST 91 H (14-36) U/L ALT 39 H (0-35) U/L Alkaline Phosphatase 92 (38-126) U/L Serum Total Protein 7.4 (6.3-8.2) g/dL Albumin 4.0 (3.5-5.0) g/dL Lipase 76 (23-300) U/L Urinalys Dipstick Clnc Urine Color (YELLOW) Urine Appearance (CLEAR) Urine pH (5-6) Ur Specific [place] (1.005-1.025) POC Urine Protein Conf (Negative) Urine Ketones (NEGATIVE) Urine Nitrite (NEGATIVE) Urine Bilirubin (NEGATIVE) Urine Urobilinogen (0-1) mg/dL Urine Leukocytes (NEGATIVE) Urine WBC (Auto) (0-5) /HPF Urine RBC (Auto) (0-2) /HPF U Epithel Cells (Auto) (FEW) /HPF Urine Bacteria (Auto) (NEGATIVE) /HPF Urine RBC (0-5) Ramesh/ul Ur Culture Indicated? Urine Glucose (NEGATIVE) mg/dL Urine Opiates Level NEGATIVE (NEGATIVE) Ur Methadone NEGATIVE (NEGATIVE) Urine Barbiturates NEGATIVE (NEGATIVE) Ur Phencyclidine (PCP) NEGATIVE (NEGATIVE) Urine Amphetamine NEGATIVE (NEGATIVE) U Benzodiazepine Level NEGATIVE (NEGATIVE) Urine Cocaine NEGATIVE (NEGATIVE) Urine Marijuana (THC) NEGATIVE (NEGATIVE) 08/03/22 Range/Units Unknown WBC (4.0-10.5) x10^3/uL RBC (4.1-5.4) x10^6/uL Hgb (12.0-16.0) g/dL Hct (35-47) % MCV (78-100) fL MCH (26-32) pg MCHC (32-36) g/dL RDW (11.5-14.0) % Plt Count (150-450) x10^3/uL MPV (7.5-11.0) fL Gran % (36.0-66.0) % Immature Gran % (Auto) (0.00-0.4) % Nucleat RBC Rel Count (0.00-0.1) % Eos # (Auto) (0-0.5) x10^3/uL Immature Gran # (Auto) (0.00-0.03) x10^3u/L Absolute Lymphs (auto) (1.0-4.6) x10^3/uL Absolute Monos (auto) (0.0-1.3) x10^3/uL Absolute Nucleated RBC (0.00-0.01) x10^3u/L Lymphocytes % (24.0-44.0) % Monocytes % (0.0-12.0) % Eosinophils % (0.00-5.0) % Basophils % (0.0-0.4) % Absolute Granulocytes (1.4-6.9) x10^3/uL Basophils # (0-0.4) x10^3/uL Sodium (137-145) mmol/L Potassium (3.5-5.1) mmol/L Chloride (98-107) mmol/L Carbon Dioxide (22-30) mmol/L Anion Gap (5-15) MEQ/L BUN (7-17) mg/dL Creatinine (0.52-1.04) mg/dL Estimated GFR ML/MIN Glucose (74-106) mg/dL Calcium (8.4-10.2) mg/dL Total Bilirubin (0.2-1.3) mg/dL AST (14-36) U/L ALT (0-35) U/L Alkaline Phosphatase (38-126) U/L Serum Total Protein (6.3-8.2) g/dL Albumin (3.5-5.0) g/dL Lipase (23-300) U/L Urinalys Dipstick Clnc MAIN LAB Urine Color YELLOW (YELLOW) Urine Appearance SLIGHTLY CLOUDY A (CLEAR) Urine pH 7.5 (5-6) Ur Specific [place] 1.020 (1.005-1.025) POC Urine Protein Conf NEGATIVE (Negative) Urine Ketones NEGATIVE (NEGATIVE) Urine Nitrite NEGATIVE (NEGATIVE) Urine Bilirubin NEGATIVE (NEGATIVE) Urine Urobilinogen 0.2 (0-1) mg/dL Urine Leukocytes TRACE A (NEGATIVE) Urine WBC (Auto) 0-2 (0-5) /HPF Urine RBC (Auto) 0-2 (0-2) /HPF U Epithel Cells (Auto) RARE (FEW) /HPF Urine Bacteria (Auto) NONE (NEGATIVE) /HPF Urine RBC TRACE-INTACT A (0-5) Ramesh/ul Ur Culture Indicated? NO Urine Glucose NEGATIVE (NEGATIVE) mg/dL Urine Opiates Level (NEGATIVE) Ur Methadone (NEGATIVE) Urine Barbiturates (NEGATIVE) Ur Phencyclidine (PCP) (NEGATIVE) Urine Amphetamine (NEGATIVE) U Benzodiazepine Level (NEGATIVE) Urine Cocaine (NEGATIVE) Urine Marijuana (THC) (NEGATIVE) - Progress Progress: improved Progress Note: Patient reassessed. Pain improved. Patient requesting discharge. Laboratory work-up reveals a leukocytosis and transaminitis. [employer] was in house and volunteered to do the ultrasound early this morning. Ultrasound negative per field identification specialist. Will discharge home at this time. Patient agrees to follow-up with her primary care doctor within 48 hours for evaluation. Portions of this note were created with voice recognition technology. There may be grammatical, spelling, punctuation or sound alike errors 08/04/22 02:42 Counseled pt/family regarding: lab results, diagnosis, need for follow-up - Departure Departure Disposition: Home Clinical Impression: Biliary colic Condition: Stable Critical Care Time: No Referrals: FOREIGN AMATO NP [Primary Care Provider] - Additional Instructions: to discharge and then go to er to be seen there Forms: OB Outpatient Discharge Inst.
[2022-08-04] MEDS ORDERED: Sodium Chloride 0.9% 1000 ML 1,000 ML IV SCH (01:15)
[2022-08-04 01:18] LABS: Absolute Neutrophil Ct (ANC) 10.82 x10^3/uL (1.4-6.9); Basophil (Absolute #) 0.03 x10^3/uL (0-0.4); Eosinophil % 0.5 % (0.00-5.0); Eosinophil (Absolute #) 0.07 x10^3/uL (0-0.5); Hematocrit 35.9 % (35-47); Hemoglobin 11.4 g/dL (12.0-16.0); Lymphocyte (Absolute #) 1.74 x10^3/uL (1.0-4.6); Lymphocytes % 12.8 % (24.0-44.0); Mean Corpuscular Hemoglobin 30.8 pg (26-32); Mean Corpuscular Hgb Concent. 31.8 g/dL (32-36); Mean Platelet Volume 9.2 fL (7.5-11.0); Monocytes % 5.9 % (0.0-12.0); Neutrophil % 79.9 % (36.0-66.0); Platelet Count 302 x10^3/uL (150-450); White Blood Count 13.6 x10^3/uL (4.0-10.5)
[2022-08-04] MEDS ORDERED: Zofran 4 MG/2 ML VIAL ONE (01:31)
[2022-08-04] MEDS ORDERED: Sodium Chloride 0.9% 1000 ML 1,000 ML ONE (01:32)
[2022-08-04] MEDS ORDERED: MORPHINE SULFATE 2 MG INJ ONE (01:32)
[2022-08-04 01:36] LABS: ALKALINE PHOSPHATASE 92 U/L (38-126); ANION GAP 10.7 MEQ/L (5-15); BLOOD UREA NITROGEN 9 mg/dL (7-17); CHLORIDE 103 mmol/L (98-107); Calcium 8.9 mg/dL (8.4-10.2); Carbon Dioxide 24 mmol/L (22-30); Creatinine 1 0.48 mg/dL (0.52-1.04); EST GLOMERULAR FILTRATION RATE > 60.0 ML/MIN; Glucose 94 mg/dL (74-106); LIPASE 76 U/L (23-300); Potassium 3.8 mmol/L (3.5-5.1); SGOT/AST 91 U/L (14-36); SGPT/ALT 39 U/L (0-35); SODIUM 134 mmol/L (137-145); Total Protein 7.4 g/dL (6.3-8.2)
[2022-08-04 03:05] VITALS: BP 117/74; PULSE 100; O2SAT 100
--- NOTE | 2022-08-04 09:22 | XRAY ---
Indication: Right upper quadrant pain. Two-dimensional gallbladder sonogram performed. Comparison: June 14, 2019 Visualized gallbladder again moderately distended with now tiny sludge/gravel in the dependent portion. No abnormal gallbladder wall thickening or pericholecystic fluid. Common bile duct measures 5.6 mm. No intrahepatic biliary distention. Remaining visualized liver, pancreas, and right kidney are sonographically unremarkable. Right kidney measures 11.9 cm in length. Impression: Distended gallbladder with new tiny gallbladder sludge/gravel. Negative for acute cholecystitis or biliary distention. Comment: Preliminary report was given.
== END 2022-08-04 03:05 | disposition home or self-care (01) ==
LOC: OB 22:01 → UNDOADMOB 22:01 → ED 22:01 → EDSTATUS 22:42 → ED 08-04 03:05
DX: K80.50 Calculus of bile duct without cholangitis or cholecystitis without obstruction (principal); R10.11 Right upper quadrant pain; R11.2 Nausea with vomiting, unspecified; Z33.1 Pregnant state, incidental; Z79.899 Other long term (current) drug therapy
CPT/HCPCS: 36000; 36415; 76705; 80053; 80307; 81015; 83690; 85025; 96374; 96375; 99284; G0378; 99213; J2270; J2405

== ENCOUNTER 2023-10-30 08:59 | Emergency (ER) | payer OTHER ==
[2023-10-30 09:15] VITALS: BP 136/60; RESP 18; TEMP 98.2; O2SAT 100
--- NOTE | 2023-10-30 10:43 | ERPHSYRPT ---
- History of Present Illness Time Seen by Provider: 10/30/23 10:37 Source: patient Exam Limitations: no limitations Patient Subjective Stated Complaint: Cough Triage Nursing Assessment: Patient ambulated back to ED and transferred to bed per self. Patient A+O X 3. Patient's skin pink, warm and dry. Patient complains of fever, cough and sore throat for 3 days. Patient was seen in [facility] and swabbed for Covid/Flu/RSV and strep, which were all negative. Patient states she has a productive cough with yellow/green sputum. 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 Lungs clear. Physician History: 33-year-old presented to the ER with chief complaint of cough productive of yellow-green sputum moderate and mild for the last 3 to 4 days with fever and ch ills. She also has mild nasal congestion. She was evaluated outpatient with negative COVID swabs. Patient has a questionable positive sick contact and concern for pneumonia. No difficulty breathing. No chest pain. Allergies/Adverse Reactions: amoxicillin [Amoxicillin] Allergy (Severe, Verified 10/30/23 09:06) Hives Penicillins Allergy (Intermediate, Verified 10/30/23 09:06) Difficulty Swallowing Home Medications: Pnv No.95/Ferrous Fum/Folic AC [ Vitamins Tablet] 1 tab PO DAILY 05/19/19 [History] Gabapentin 600 mg PO QID 03/15/21 [History] ARIPiprazole [Aripiprazole] 20 mg PO HS 08/04/22 [History] Lamotrigine [Lamotrigine ER] 25 mg PO HS 08/04/22 [History] Lorazepam 1 mg [Ativan 1 MG] 1 tab PO TID PRN PRN 08/04/22 [History] Hx Tetanus, Diphtheria Vaccination/Date Given: Yes Hx Influenza Vaccination/Date Given: No Hx Pneumococcal Vaccination/Date Given: No Immunizations Up to Date: Yes Travel Risk - International Travel Have you traveled outside of the country in past 3 weeks: No - Coronavirus Screening Are you exhibiting any of the following symptoms?: No Close contact with a COVID-19 positive Pt in past 14-21 Days: No - Vaccine Status Have you recieved a Covid-19 vaccination: No - Review of Systems Constitutional: No Symptoms Eyes: No Symptoms Ears, Nose, & Throat: No Symptoms Respiratory: Cough, No Dyspnea Cardiac: No Chest Pain Abdominal/Gastrointestinal: No Symptoms Genitourinary Symptoms: No Symptoms Skin: No Symptoms Neurological: No Symptoms Hematologic/Lymphatic: No Symptoms Immunological/Allergic: No Symptoms - Past Medical History Pertinent Past Medical History: Yes Neurological History: No Pertinent History ENT History: No Pertinent History Cardiac History: Other Respiratory History: No Pertinent History Endocrine Medical History: No Pertinent History Musculoskeletal History: No Pertinent History GI Medical History: No Pertinent History History: No Pertinent History Psycho-Social History: Anxiety, Depression Female Reproductive Disorders: No Pertinent History Other Medical History: FAST HEART RATE - Past Surgical History Past Surgical History: Yes Neuro Surgical History: No Pertinent History Cardiac: No Pertinent History Respiratory: No Pertinent History Gastrointestinal: Appendectomy Genitourinary: No Pertinent History Musculoskeletal: No Pertinent History Female Surgical History: No Pertinent History Other Surgical History: TONSILS - Social History Smoking Status: Former smoker How long have you smoked: 10 yrs Exposure to second hand smoke: No Drug Use: marijuana Patient Lives Alone: No Significant Family History: no pertinent family hx - Female History Hx Last Menstrual Period: Last month Hx Now: No - Nursing Vital Signs Nursing Vital Signs: Initial Vital Signs Temperature 98.2 F 10/30/23 09:08 Pulse Rate 78 10/30/23 09:08 Respiratory Rate 18 10/30/23 09:08 Blood Pressure 136/60 10/30/23 09:08 O2 Sat by Pulse Oximetry 100 10/30/23 09:08 Pain Scale Pain Intensity 0 - Physical Exam General Appearance: no apparent distress, alert Eye Exam: PERRL/EOMI Ears, Nose, Throat Exam: moist mucous membranes, pharyngeal erythema Neck Exam: normal inspection, non-tender, supple, full range of motion Respiratory Exam: normal breath sounds, lungs clear Cardiovascular Exam: regular rate/rhythm, normal heart sounds Gastrointestinal/Abdomen Exam: soft, normal bowel sounds, No tenderness Extremity Exam: normal inspection, normal range of motion Neurologic Exam: alert, oriented x 3, cooperative Skin Exam: normal color SpO2 Interpretation: normal SpO2: 100 O2 Delivery: Room Air Ordered Tests: Active Orders 24 hr Category Date Time Status CHEST 1 VIEW (PORTABLE) Stat Exams 10/30/23 09:05 Taken - Progress Progress: unchanged Air Movement: good Progress Note: 10/30/23 10:40 33-year-old is evaluated for worsening cough with fever and chills. She refused to have COVID swab. I have obtain x-rays which showed airspace disease in bilateral lower lobes. Patient is not in any distress. And oxygen saturation in upper 90s. I believe patient has bronchitis, will treat with doxycycline and do albuterol inhaler to use as needed. Do not think she needs any other workup. Discussed signs symptoms of worsening needing return to ER which she seems understanding. Stable for discharge Blood Culture(s) Obtained: No Antibiotics given: Yes Counseled pt/family regarding: diagnosis, need for follow-up, rad results Medical Desision Making - Diagnostic Testing Diagnostic test were ordered, analyzed, and reviewed by me: Yes Radiological Interpretation: Interpreted by me, Reviewed by me - Risk of complications The pt has a mod risk of morbidity or mortality based on: Need for prescription drug management - Departure Departure Disposition: Home Clinical Impression: Bronchitis, acute Condition: Stable Critical Care Time: No Referrals: FOREIGN AMATO, SIMULATION SPECIALIST [Primary Care Provider] - Follow up with PCP 2 days Instructions: Acute Bronchitis, Adult (DC) Additional Instructions: Take Tylenol/ibuprofen as needed for fever chills. Increase hydration. Use inhaler as needed if having difficulty breathing. Take [id number] cough medication. Follow-up with primary care for reevaluation. Return to ER for any worsening. Prescriptions: Albuterol Sulfate [Albuterol Sulfate Hfa] 8.5 gm IH Q6H PRN 7 Days #1 inh PRN Reason: Cough Doxycycline Hyclate 100 mg [Vibramycin 100 MG] 100 mg PO BID #14 tab
[2023-10-30 10:55] VITALS: PULSE 73
--- NOTE | 2023-10-30 20:37 | XRAY ---
Indication: Cough. Comparison: May 03, 2011 Portable chest demonstrates new hazy right infrahilar groundglass airspace opacities without consolidation/large effusion. Remaining left lung, heart, and bony thorax unremarkable.
== END 2023-10-30 10:55 | disposition home or self-care (01) ==
LOC: ED 08:59
DX: J20.9 Acute bronchitis, unspecified (principal); R05.1 Acute cough; R50.9 Fever, unspecified; R09.81 Nasal congestion; Z79.899 Other long term (current) drug therapy; Z28.310 Unvaccinated for COVID-19
CPT/HCPCS: 71045; 99282